=== PATIENT | male | born 1955 | race Caucasian/White ===

== ENCOUNTER → 2018-03-09 07:38 | Outpatient (CLI) | payer OTHER, SELFPAY ==
[2018-03-09 07:51] LABS: Bacteria Urine None Seen; RBC Urine None Seen (0-5/HPF); WBC Urine None Seen (0-5/HPF)
[2018-03-09 08:50] LABS: Add Manual Diff / Slide Review NO; Appearance Urine UA CLEAR; Basophils Percent Auto 0.3 % (0-2); Bilirubin Urine UA NEGATIVE (NEGATIVE); Color Urine UA YELLOW; Glucose Urine UA 2+ g/dL (Normal); Hematocrit 43.6 % (41-53); Hemoglobin 15.1 g/dL (13.5-17.5); Ketones Urine UA NEGATIVE (NEGATIVE); Leukocyte Esterase Urine UA NEGATIVE (NEGATIVE); Lymphocytes Percent Auto 23.2 % (25-40); Mean Corpuscular HGB Conc 34.8 % (30-36); Mean Corpuscular Hemoglobin 29.8 PG (26-34); Mean Corpuscular Volume 85.9 fL (80-100); Monocytes Percent Auto 7.7 % (3-14); Neutrophils Absolute Auto 3000 /uL (3000-5900); Neutrophils Percent Auto 66.8 % (50-75); Nitrite Urine UA Negative (Negative); Occult Blood Urine UA NEGATIVE (Negative); Platelet Count 198 X10^3/uL (150-400); Protein Urine UA NEGATIVE (Negative); Red Blood Cell Count 5.07 X10^6/uL (4.5-5.9); Red Cell Distribution Width 12.7 % (11.6-14.8); Specific Gravity Urine UA 1.025 (1.000-1.035); Urobilinogen Urine UA 0.2 E.U./dL (0.2); White Blood Cell Count 4.5 X10^3/uL (4.5-11.0)
[2018-03-09 09:00] LABS: Culture Indicated Urine Cult Not Indicated; Urine Comments Microscopic Normal
[2018-03-09 09:10] LABS: Alanine Aminotransferase 47 IU/L (21-72); Albumin 4.6 g/dL (3.5-5.0); Albumin Globulin Ratio 1.8 (1.0-2.8); Alkaline Phosphatase 47 U/L (38-126); Aspartate Aminotransferase 29 IU/L (17-59); BUN Creatinine Ratio 17.5 (6-22); Bilirubin Total 0.7 mg/dL (0.2-1.3); Blood Urea Nitrogen 14 mg/dL (9-20); Calcium 9.5 mg/dL (8.4-10.2); Carbon Dioxide 31 mmol/L (22-32); Chloride 101 mmol/L (98-107); Cholesterol 199 mg/dL (140-199); Estimated Glomerular Filt Rate > 60.0 mL/min (>60); Globulin 2.5 g/dL (1.7-4.1); Glucose 224 mg/dL (80-110); HDL Cholesterol 46 mg/dL (40-60); HEMOLYSIS < 15 (0-50); LDL Cholesterol Calculated 123 mg/dL (<100); Potassium 4.2 mmol/L (3.4-5.1); Sodium 144 mmol/L (137-145); Total Protein 7.1 g/dL (6.3-8.2); Triglycerides 149 mg/dL (35-150)
[2018-03-09 09:49] LABS: TSH w/ Reflex to FT4 3.39 uIU/mL (0.47-4.68)
== END ==
PROVIDERS: PCP Family Medicine; Visit Provider Nurse Practitioner Family
DX: Z00.00 Encounter for general adult medical examination without abnormal findings (principal)
CPT/HCPCS: 36415; 80053; 80061; 81001; 84443; 85025

== ENCOUNTER → 2018-03-10 13:16 | Outpatient (CLI) | payer OTHER, SELFPAY | PROVIDERS: PCP Family Medicine; Visit Provider Family Medicine | DX: E11.69 Type 2 diabetes mellitus with other specified complication (principal); E11.9 Type 2 diabetes mellitus without complications; E78.5 Hyperlipidemia, unspecified; Z12.5 Encounter for screening for malignant neoplasm of prostate | CPT/HCPCS: 83036; 84153 ==

== ENCOUNTER → 2018-04-12 11:05 | Outpatient (CLI) | payer OTHER, SELFPAY ==
--- NOTE | 2018-04-12 11:07 | DI.RAD.S_ITS ---
PROCEDURE: XR SHOULDER LT MIN 2V INDICATIONS: Ongoing left shoulder pain x6 months TECHNIQUE: 3 views of the shoulder were acquired. COMPARISON: None. FINDINGS: Bones: No fractures or dislocations. No suspicious bony lesions. Visualized ribs appear intact. Mild AC and glenohumeral joint degeneration. Soft tissues: No suspicious soft tissue calcifications. IMPRESSION: Mild left shoulder joint degeneration. Dictated by: Garcia Cedeno M.D. on 04/12/2018 at 13:12 Approved by: Garcia Cedeno M.D. on 04/12/2018 at 13:13
== END ==
PROVIDERS: PCP Family Medicine; Visit Provider Family Medicine
DX: M25.512 Pain in left shoulder (principal); M19.012 Primary osteoarthritis, left shoulder
CPT/HCPCS: 73030

== ENCOUNTER → 2018-07-09 07:34 | Outpatient (CLI) | payer OTHER, SELFPAY ==
[2018-07-09 09:52] LABS: BUN Creatinine Ratio 13.8 (6-22); Blood Urea Nitrogen 11 mg/dL (9-20); Calcium 9.5 mg/dL (8.4-10.2); Carbon Dioxide 28 mmol/L (22-32); Chloride 101 mmol/L (98-107); Estimated Glomerular Filt Rate > 60.0 mL/min (>60); Glucose 161 mg/dL (80-110); HEMOLYSIS < 15 (0-50); Potassium 4.4 mmol/L (3.4-5.1); Sodium 139 mmol/L (137-145)
[2018-07-09 10:49] LABS: Hemoglobin A1C% w Est Avg Glu 8.2 % (4.0-6.0)
== END ==
PROVIDERS: PCP Family Medicine; Visit Provider Family Medicine
DX: E11.65 Type 2 diabetes mellitus with hyperglycemia (principal)
CPT/HCPCS: 36415; 80048; 83036

== ENCOUNTER 2018-09-09 01:30 | Emergency (ER) | payer OTHER, SELFPAY ==
[2018-09-09 01:38] VITALS: BP 138/95; PULSE 86; RESP 15; TEMP 36.9; O2SAT 96; BMI 28.7
--- NOTE | 2018-09-09 02:11 | DI.RAD.S_ITS ---
PROCEDURE: XR CHEST 2V INDICATIONS: severe pain in lower left chest after cough TECHNIQUE: 2 views of the chest were acquired. COMPARISON: None. FINDINGS: Surgical changes and devices: None. Lungs and pleura: Lungs are clear. There is a 5 mm nodule in the right lower lung zone on the frontal view. No pleural effusions or pneumothorax. Mediastinum: Mediastinal contours are normal. Heart size is normal. Bones and chest wall: No suspicious bony abnormalities. Soft tissues appear unremarkable. IMPRESSION: 1. No acute cardiopulmonary disease. 2. A 5 mm nodule in the right lower lung zone. A chest CT is suggested for followup. The result was discussed with Dr. Borjas's nurse Ayah on 09/09/2018 at 12:29 hours. Dictated by: Kelton Ulloa M.D. on 09/09/2018 at 8:31 Approved by: Kelton Ulloa M.D. on 09/09/2018 at 12:33
[2018-09-09] MEDS: ACETAMINOPHEN/CODEINE SOLN 5 ML SOLUTION 10 ML PO (02:23)
--- NOTE | 2018-09-09 02:29 | ED_ITS ---
HPI - Chest Pain General Chief Complaint: Chest Pain Stated Complaint: tore or pulled left chest muscle, coughing Time Seen by Provider: 09/09/18 01:31 Source: patient and family Mode of arrival: ambulatory Limitations: no limitations History of Present Illness HPI narrative: 62-year-old male nonsmoker with recent upper respiratory symptoms presents with severe left-sided abdominal wall pain after a violent coughing fit. He has had some runny nose, headache, sore throat and dry hacking cough for the past few days. Denies nausea, vomiting or diarrhea. He denies any change in urinary or bowel habits. He denies any injury or history of the same. His pain is sharp and burning in on his left anterior abdominal wall. His discomfort is fine if he remains still and is not coughing or pushing on it. Onset (ago): hour(s) Duration: intermittent Onset: other Pain location: other (Left anterior abdominal muscle wall) Severity: severe Quality: sharp Pain radiation: none Relieving factors: rest Exacerbating factors: inspiration Context: recent illness Treatments prior to arrival chest pain: none Related Data Previous Rx's Medication Instructions Recorded pravastatin 40 mg tablet 40 mg PO HS #90 tab 03/10/18 varicella-zoster glycoE [id number] 0.5 ml IM ONCE #1 each 03/10/18 adj(PF) 50 mcg/0.5 mL IM susp, kit glipizide ER 5 mg tablet, extended 5 mg PO DAILY #90 tab 05/12/18 release 24 hr losartan 50 mg tablet 50 mg PO DAILY #90 tab 05/21/18 blood sugar diagnostic strips #100 each 07/13/18 glipizide ER 2.5 mg tablet, 7.5 mg PO DAILY #270 tab 07/20/18 extended release 24 hr ciprofloxacin 0.3 %-dexamethasone 4 drop EAR-RIGHT BID #7.5 ml 07/26/18 0.1 % ear drops,suspension benzonatate [Tessalon Perles] 100 mg PO BID-TID PRN #14 cap 09/09/18 codeine-guaifenesin 5 ml PO Q6H PRN #473 ml 09/09/18 lidocaine [Lidoderm] 1 patch TOP DAILY #15 each 09/09/18 Allergies Allergy/AdvReac Type Severity Reaction Status Date / Time atorvastatin [From LIPITOR] Allergy Intermediate body pain Verified 09/09/18 01:38 Review of Systems Constitutional Denies chills, Denies fever(s), Denies lethargy and Denies weakness Eyes Denies change in vision, Denies eye discharge, Denies irritation and Denies loss of vision ENT Ears, Nose, Mouth, and Throat: Denies change in voice, Reports nasal congestion, Reports nasal discharge, Denies neck pain and Reports sore throat Cardiovascular Denies chest pain, Denies irregular heart rhythm, Denies lightheadedness, Denies palpitations, Denies dyspnea, Denies dyspnea on exertion and Denies orthopnea Respiratory Reports cough, Denies dyspnea, Denies dyspnea on exertion and Denies wheezing Gastrointestinal Gastrointestinal: Reports abdominal pain, Denies change in bowel habits, Denies diarrhea, Denies nausea and Denies vomiting Genitourinary Denies hematuria, Denies flank pain, Denies urinary incontinence and Denies urinary urgency Musculoskeletal Denies neck pain Integumentary/Breasts Denies pruritus, Denies erythema, Denies rash and Denies wounds Neurologic Denies confusion, Denies loss of vision and Denies weakness Psychiatric Denies anxiety, Denies confusion, Denies depression, Denies homicidal ideation and Denies suicidal ideation Endocrine Denies palpitations Hematologic/Lymphatic Denies easy bruising Allergic/Immunologic Denies wheezing PFSH Medical History Essential hypertension (Chronic) Chronic back pain (Chronic) Diabetes mellitus (Chronic 2014) Foot infection (Resolved 1998) Surgical History Anesthesia (Resolved) History of foot surgery (Resolved 1998) Status post discectomy (Resolved 2015) Family History Brother Hypertension High cholesterol Father Heart disease Hypertension High cholesterol Diabetes mellitus Hx of CABG Mother Hypertension ALS (amyotrophic lateral sclerosis) Brother No problems noted. Sister MS (multiple sclerosis) Social History marital status: Smoking Status: Never smoker alcohol intake: current substance use type: does not use Family History Brother Hypertension High cholesterol Father Heart disease Hypertension High cholesterol Diabetes mellitus Hx of CABG Mother Hypertension ALS (amyotrophic lateral sclerosis) Brother No problems noted. Sister MS (multiple sclerosis) Social History marital status: Smoking Status: Never smoker alcohol intake: current substance use type: does not use Exam Narrative Exam Narrative: GENERAL: 62-year-old male appears stated age. He is obviously uncomfortable and clutching his left abdomen HEAD: Atraumatic. Normocephalic. No temporal or scalp tenderness. EYES: Pupils equal round and reactive. Extraocular motions intact. No scleral icterus. No injection or drainage. ENT: Clear bilateral nasal drainage with clear posterior pharyngeal drainage NECK: Trachea midline. No JVD or lymphadenopathy. Supple, nontender, no meningea l signs. CARDIOVASCULAR: Regular rate and rhythm without murmurs, gallops, or rubs. RESPIRATORY: Clear to auscultation. Breath sounds equal bilaterally. No wheezes, rales, or rhonchi. GASTROINTESTINAL: Left anterior abdominal muscle wall is quite tender to palpation. There is no bulge or suggestion of hernia or obvious rent. Abdomen soft, non-tender, nondistended. No hepato-splenomegaly, or palpable masses. No guarding. EXTREMITIES: No clubbing, cyanosis, or edema. No joint tenderness, effusion, or edema noted. BACK: Nontender without deformity or crepitance. No flank tenderness. NEURO: AOx3. SKIN: No rash or erythema. Initial Vital Signs Initial Vital Signs: Vital Signs Temperature 98.5 F 09/09/18 01:38 Pulse Rate 86 09/09/18 01:38 Respiratory Rate 15 09/09/18 01:38 Blood Pressure 138/95 H 09/09/18 01:38 Pulse Oximetry 96 09/09/18 01:38 Course Orders Ordered: ED Orders 09/09/18 02:11 XR chest 2V Stat 09/09/18 02:15 Influenza A and B by PCR Rapid Stat Discontinued Medications Acetaminophen/Codeine Phosphate (Tylenol Oral Divine 120-12 Mg/5 Ml) 10 ml PO NOW ONE Stop: 09/09/18 02:12 Last Admin: 09/09/18 02:23 Dose: 10 ml Vital Signs - 8 hr 09/09/18 01:38 09/09/18 02:51 Temperature 98.5 F Pulse Rate 86 59 L Respiratory Rate 15 20 Blood Pressure 138/95 H Blood Pressure [Left Wrist] 111/65 Pulse Oximetry 96 97 MDM - Chest Pain Lab Data Lab Results 09/09/18 Range/Units 02:15 Influenza A & B (PCR) Negative (Negative) Imaging Data Chest x-ray: Attestation: I personally reviewed and interpreted this imaging study as follows: My impression: No SBO, PTX, PNA MDM Narrative Medical decision making narrative: Patient with URI symptoms presents with severe tearing abdominal wall pain with a coughing spell. Patient denies any shortness of breath. He has had no fever or chills. Discharge Plan Departure Patient Disposition: Home Clinical Impression: Abdominal muscle strain Qualifiers: Encounter type: initial encounter Qualified Code(s): S39.011A - Strain of muscle, fascia and tendon of abdomen, initial encounter Upper respiratory infection Qualifiers: URI type: unspecified viral URI Qualified Code(s): J06.9 - Acute upper respiratory infection, unspecified Activity Restrictions/Additional Instructions: *You have been diagnosed with [anterior abdominal wall strain is secondary to cough from upper respiratory infection ] *What to do: *Take medications as directed *Follow up with your primary care provider in 2-3 days, call for an appointment. Let them know you were seen in the Emergency Department and that we ask that you be seen in follow up *Return to ER if you should have any new, worsening or concerning symptoms Prescriptions: New benzonatate [Tessalon Perles] 100 mg capsule 100 mg PO BID-TID PRN (Reason: cough) Qty: 14 RF: 0 codeine-guaifenesin 7.5-225 mg/5 mL liquid 5 ml PO Q6H PRN (Reason: cough) Qty: 473 RF: 0 lidocaine [Lidoderm] 5 % adhesive patch,medicated 1 patch TOP DAILY Qty: 15 RF: 0 No Action Ciprodex 0.3-0.1 % drops,suspension 4 drop EAR-RIGHT BID Qty: 7.5 RF: 2 losartan 50 mg tablet 50 mg PO DAILY Qty: 90 RF: 2 glipizide 2.5 mg tablet extended release 24hr 7.5 mg PO DAILY Qty: 270 RF: 3 pravastatin 40 mg tablet 40 mg PO HS Qty: 90 RF: 3 varicella-zoster [id number] (PF) [Shingrix (PF)] 50 mcg/0.5 mL suspension for reconstitution 0.5 ml IM ONCE Qty: 1 RF: 1 blood sugar diagnostic [Blood Glucose Test] strip .Route .MEDSUPPLY Qty: 100 RF: 11 glipizide 5 mg tablet extended release 24hr 5 mg PO DAILY Qty: 90 RF: 2 Referrals: Cheryl Borjas DO [Primary Care Provider] -
[2018-09-09 02:35] LABS: Influenza A and B by PCR Rapid Negative (Negative)
[2018-09-09 02:51] VITALS: BP 111/65; PULSE 59; RESP 20; O2SAT 97
== END 2018-09-09 02:58 | disposition home or self-care (01) ==
PROVIDERS: Emergency Provider Emergency Medicine; PCP Family Medicine
DX: S39.011A Strain of muscle, fascia and tendon of abdomen, initial encounter (principal); J06.9 Acute upper respiratory infection, unspecified
CPT/HCPCS: 71046; 87400; 99282; 99283

== ENCOUNTER → 2018-09-15 15:45 | Outpatient (CLI) | payer OTHER, SELFPAY ==
[2018-09-15 17:21] LABS: BUN Creatinine Ratio 18.8 (6-22); Blood Urea Nitrogen 15 mg/dL (9-20); Calcium 9.7 mg/dL (8.4-10.2); Carbon Dioxide 28 mmol/L (22-32); Chloride 101 mmol/L (98-107); Estimated Glomerular Filt Rate > 60.0 mL/min (>60); Glucose 245 mg/dL (80-110); HEMOLYSIS < 15 (0-50); Potassium 4.6 mmol/L (3.4-5.1); Sodium 138 mmol/L (137-145)
== END ==
PROVIDERS: PCP Family Medicine; Visit Provider Family Medicine
DX: R91.1 Solitary pulmonary nodule (principal)
CPT/HCPCS: 36415; 80048

== ENCOUNTER → 2018-09-17 07:58 | Outpatient (CLI) | payer OTHER, SELFPAY ==
--- NOTE | 2018-09-17 08:20 | DI.CT.S_ITS ---
PROCEDURE: CT CHEST WO CON INDICATIONS: NODULE OF CHEST WALL TECHNIQUE: Noncontrast 5 mm thick sections acquired from the pulmonary apices to the posterior costophrenic angles. 7 mm thick coronal and sagittal MIP reformats were then acquired. For radiation dose reduction, the following was used: automated exposure control, adjustment of mA and/or kV according to patient size. COMPARISON: [facility], CR, XR CHEST 2V, 09/09/2018, 2:16. FINDINGS: Image quality: Excellent. Lungs and pleura: Within the right lower lobe, there is a 4 mm soft tissue nodule corresponding to the plain film visible nodule, as on series 3 image 32. No additional pulmonary nodules can be seen. No acute air space opacities. No pleural effusions or pneumothorax. Central and peripheral airways are patent and normal in caliber. Mediastinum: Heart size is normal. No pericardial effusion. No mediastinal adenopathy by size criteria. There is a collection of gas seen to the right and slightly posterior on the trachea and just to the right of the esophagus, as on series 3 image 9 and on series 4 images 34, which measures up to 2.7 cm craniocaudally. Thoracic aorta and central pulmonary arteries are normal in size. Esophagus is normal in caliber. No hiatal hernia. Bones and chest wall: No suspicious bony lesions. No vertebral body compression fractures. No axillary or supraclavicular adenopathy by size criteria. Thyroid gland demonstrates no significant noncontrast abnormality. Abdomen: Visualized upper abdominal solid organs and bowel loops appear normal in the absence of contrast. IMPRESSION: There is a 4 mm right lower lobe pulmonary soft tissue nodule that corresponds to the plain film visible nodule. If this patient has a high risk for lung cancer, then please consider a dedicated followup in 1 year. If this patient is at low risk for lung cancer, then no further imaging followup would be recommended, although attention should be paid to this nodule on any future chest CTs. There is a 2.7 cm collection of gas seen within the right mediastinum. The source of this gas is uncertain, although it may be related to an esophageal diverticulum. This is believed to be a benign finding. Attention should be paid to this on any future followup studies. Dictated by: Jesse Gomez M.D. on 09/17/2018 at 8:56 Transcribed by: REINALDO on 09/17/2018 at 9:02 Approved by: Jesse Gomez M.D. on 09/17/2018 at 10:42
== END ==
PROVIDERS: PCP Family Medicine; Visit Provider Family Medicine
DX: R22.2 Localized swelling, mass and lump, trunk (principal); R91.1 Solitary pulmonary nodule
CPT/HCPCS: 71250

== ENCOUNTER → 2018-09-30 07:23 | Outpatient (CLI) | payer OTHER, SELFPAY | PROVIDERS: PCP Family Medicine; Visit Provider Family Medicine | DX: E11.9 Type 2 diabetes mellitus without complications (principal) | CPT/HCPCS: 36415; 83036 ==

== ENCOUNTER → 2018-12-28 07:31 | Outpatient (CLI) | payer OTHER, SELFPAY ==
[2018-12-28 08:33] LABS: Hemoglobin A1C% w Est Avg Glu 7.5 % (4.0-6.0)
== END ==
PROVIDERS: PCP Family Medicine; Visit Provider Family Medicine
DX: E11.9 Type 2 diabetes mellitus without complications (principal)
CPT/HCPCS: 36415; 83036

== ENCOUNTER → 2019-03-15 08:22 | Outpatient (CLI) | payer OTHER, SELFPAY ==
[2019-03-15 08:49] LABS: Add Manual Diff / Slide Review NO; Basophils Absolute Auto 0 /uL (0-100); Basophils Percent Auto 0.3 % (0-2); Eosinophils Absolute Auto 100 /uL (0-450); Eosinophils Percent Auto 1.2 % (2-4); Hematocrit 44.2 % (41-53); Hemoglobin 14.8 g/dL (13.5-17.5); Lymphocytes Absolute Auto 900 /uL (1100-4500); Lymphocytes Percent Auto 17.9 % (25-40); Mean Corpuscular HGB Conc 33.4 % (30-36); Mean Corpuscular Hemoglobin 29.1 PG (26-34); Mean Corpuscular Volume 87.1 fL (80-100); Monocytes Absolute Auto 400 /uL (0-900); Monocytes Percent Auto 7.7 % (3-14); Neutrophils Absolute Auto 3500 /uL (1500-7000); Neutrophils Percent Auto 72.9 % (50-75); Platelet Count 199 X10^3/uL (150-400); Red Blood Cell Count 5.07 X10^6/uL (4.5-5.9); Red Cell Distribution Width 13.3 % (11.6-14.8); White Blood Cell Count 4.9 X10^3/uL (4.5-11.0)
[2019-03-15 09:38] LABS: Hemoglobin A1C% w Est Avg Glu 6.2 % (4.0-6.0)
[2019-03-15 09:56] LABS: Alanine Aminotransferase 49 IU/L (21-72); Albumin 4.8 g/dL (3.5-5.0); Albumin Globulin Ratio 1.8 (1.0-2.8); Alkaline Phosphatase 39 U/L (38-126); Aspartate Aminotransferase 28 IU/L (17-59); BUN Creatinine Ratio 16.7 (6-22); Bilirubin Total 0.5 mg/dL (0.2-1.3); Blood Urea Nitrogen 15 mg/dL (9-20); Calcium 9.8 mg/dL (8.4-10.2); Carbon Dioxide 30 mmol/L (22-32); Chloride 102 mmol/L (98-107); Cholesterol 180 mg/dL (140-199); Estimated Glomerular Filt Rate > 60.0 mL/min (>60); Globulin 2.6 g/dL (1.7-4.1); Glucose 162 mg/dL (80-110); HDL Cholesterol 45 mg/dL (40-60); HEMOLYSIS < 15 (0-50); LDL Cholesterol Calculated 118 mg/dL (<100); Potassium 4.5 mmol/L (3.4-5.1); Sodium 141 mmol/L (137-145); Total Protein 7.4 g/dL (6.3-8.2); Triglycerides 86 mg/dL (35-150)
[2019-03-15 09:59] LABS: Creatinine Urine Random 130.7 mg/dL
[2019-03-15 10:03] LABS: Microalbumi Creatinin Ratio Ur 4.5 ug/mg CR (<30); Microalbumin Urine Random 0.6 mg/dL (0-1.6)
[2019-03-15 10:20] LABS: Thyroid Stimulating Hormone 2.45 uIU/mL (0.47-4.68)
== END ==
PROVIDERS: PCP Family Medicine; Visit Provider Family Medicine
DX: E11.69 Type 2 diabetes mellitus with other specified complication (principal); E78.5 Hyperlipidemia, unspecified; I10 Essential (primary) hypertension
CPT/HCPCS: 36415; 80053; 80061; 82043; 82570; 83036; 84443; 85025

== ENCOUNTER → 2019-03-21 09:26 | Outpatient (CLI) | payer OTHER, SELFPAY ==
[2019-03-21 14:22] LABS: Prostate Specific Antigen 2.38 ng/mL (0.10-4.00)
== END ==
PROVIDERS: PCP Family Medicine; Visit Provider Family Medicine
DX: Z12.5 Encounter for screening for malignant neoplasm of prostate (principal)
CPT/HCPCS: 84153

== ENCOUNTER → 2019-06-17 07:27 | Outpatient (CLI) | payer OTHER, SELFPAY ==
[2019-06-17 08:58] LABS: Hemoglobin A1C% w Est Avg Glu 6.9 % (4.0-6.0)
== END ==
PROVIDERS: PCP Family Medicine; Visit Provider Family Medicine
DX: E11.9 Type 2 diabetes mellitus without complications (principal)
CPT/HCPCS: 36415; 83036

== ENCOUNTER → 2019-06-21 10:35 | Outpatient (CLI) | payer OTHER, SELFPAY ==
[2019-06-21 11:04] LABS: Hematocrit 46.4 % (41-53); Hemoglobin 15.5 g/dL (13.5-17.5); Mean Corpuscular HGB Conc 33.4 % (30-36); Mean Corpuscular Hemoglobin 29.1 PG (26-34); Mean Corpuscular Volume 87.1 fL (80-100); Platelet Count 239 X10^3/uL (150-400); Red Blood Cell Count 5.32 X10^6/uL (4.5-5.9); Red Cell Distribution Width 12.8 % (11.6-14.8)
[2019-06-21 11:25] LABS: Alanine Aminotransferase 43 IU/L (<50); Albumin 5.1 g/dL (3.5-5.0); Alkaline Phosphatase 50 U/L (38-126); Aspartate Aminotransferase 28 IU/L (17-59); BUN Creatinine Ratio 18.2 (6-22); Bilirubin Total 0.4 mg/dL (0.2-1.3); Blood Urea Nitrogen 20 mg/dL (9-20); Calcium 10.2 mg/dL (8.4-10.2); Carbon Dioxide 29 mmol/L (22-32); Chloride 102 mmol/L (98-107); Estimated Glomerular Filt Rate > 60.0 mL/min (>60); Globulin 2.5 g/dL (1.7-4.1); Glucose 149 mg/dL (80-110); HEMOLYSIS < 15 (0-50); Potassium 4.3 mmol/L (3.4-5.1); Sodium 142 mmol/L (137-145); Total Protein 7.6 g/dL (6.3-8.2)
[2019-06-21 11:56] LABS: RBC Morphology Normal Morphology; TSH w/ Reflex to FT4 2.66 uIU/mL (0.47-4.68)
[2019-06-21 12:23] LABS: Neutrophils Absolute Manual 4080 /uL (3000-5900); Total Cells Counted 100
== END ==
PROVIDERS: PCP Family Medicine; Visit Provider Family Medicine
DX: R14.2 Eructation (principal)
CPT/HCPCS: 36415; 80053; 84443; 85025

== ENCOUNTER → 2019-06-27 14:44 | Outpatient (CLI) | payer OTHER, SELFPAY ==
--- NOTE | 2019-06-27 14:45 | DI.US.S_ITS ---
PROCEDURE: US ABDOMEN COMPLETE INDICATIONS: BELCHING, RUQ PAIN TECHNIQUE: Real-time scanning was performed of the abdominal and retroperitoneal organs, with image documentation. COMPARISON: None. FINDINGS: Liver: Liver is normal in size and homogeneous in echotexture, relatively hyperechoic consistent with fatty infiltration. Gallbladder: What appears to be a small gallbladder wall cyst is present at the fundus measuring 3.5 x 3.6 mm Biliary ducts: Intrahepatic bile ducts are non-dilated. Extrahepatic bile duct caliber measures 3.3 mm. Normal is 6-7 mm or less in diameter, or 10 mm or less post-cholecystectomy. Pancreas: Visualized portions of the pancreas are sonographically normal. Spleen: Spleen is normal in size and homogeneous in echotexture. Kidneys: Kidneys are normal in size and echotexture. Right kidney measures 12.2 cm long; left kidney measures 11.5 cm long. No hydronephrosis or nephrolithiasis. No solid masses. Aorta: Visualized aorta is normal in caliber at less than 3 cm. Iliacs: Proximal common iliac arteries are normal in caliber at less than 2.5 cm. IVC: Intrahepatic inferior vena cava is patent. Miscellaneous: No free abdominal fluid. IMPRESSION: Cyst at the gallbladder wall, at the fundus measuring only 3.6 mm in maximal dimension. Echogenic hepatic echotexture is consistent with diffuse fatty infiltration please correlate clinically for potential etiology of hepatic steatosis. Dictated by: Donta Thomas M.D. on 06/27/2019 at 17:12 Approved by: Donta Thomas M.D. on 06/27/2019 at 17:35
== END ==
PROVIDERS: PCP Family Medicine; Visit Provider Family Medicine
DX: R14.2 Eructation (principal); R10.11 Right upper quadrant pain; K82.8 Other specified diseases of gallbladder
CPT/HCPCS: 76700

== ENCOUNTER → 2019-09-10 09:21 | Outpatient (CLI) | payer OTHER, SELFPAY ==
--- NOTE | 2019-09-10 09:23 | DI.RAD.S_ITS ---
PROCEDURE: XR FOOT RT MIN 3V INDICATIONS: R foot pain after dropping object on top of it TECHNIQUE: 3 views of the foot were acquired. COMPARISON: None. FINDINGS: Bones: No fractures or dislocations. No suspicious bony lesions. Soft tissues: No tibiotalar joint effusion. Achilles tendon appears normal. IMPRESSION: No visualized acute fracture or dislocation. However, if clinical concern and/or pain persist, short interval imaging followup in 7-10 days is recommended, as occult injury cannot be definitively excluded. Dictated by: Ale Perdomo M.D. on 09/10/2019 at 9:46 Approved by: Ale Perdomo M.D. on 09/10/2019 at 9:46
== END ==
PROVIDERS: PCP Family Medicine; Referring Provider Family Medicine; Visit Provider Nurse Practitioner
DX: M79.671 Pain in right foot (principal)
CPT/HCPCS: 73630

== ENCOUNTER → 2019-09-23 07:33 | Outpatient (CLI) | payer OTHER, SELFPAY ==
[2019-09-23 08:10] LABS: Hemoglobin A1C% w Est Avg Glu 7.9 % (4.0-6.0)
== END ==
PROVIDERS: PCP Family Medicine; Referring Provider Family Medicine; Visit Provider Family Medicine
DX: E11.9 Type 2 diabetes mellitus without complications (principal)
CPT/HCPCS: 36415; 83036

== ENCOUNTER → 2020-02-01 15:57 | Outpatient (CLI) | payer OTHER, SELFPAY ==
[2020-02-01 16:57] LABS: Hemoglobin A1C% w Est Avg Glu 6.6 % (4.0-6.0)
== END ==
PROVIDERS: PCP Family Medicine; Referring Provider Family Medicine; Visit Provider Family Medicine
DX: E11.9 Type 2 diabetes mellitus without complications (principal)
CPT/HCPCS: 36415; 83036

== ENCOUNTER 2020-06-04 15:03 | Emergency (ER) | payer OTHER, SELFPAY ==
[2020-06-04 15:06] VITALS: BP 146/85; PULSE 88; RESP 16; TEMP 36.5; O2SAT 100
[2020-06-04] MEDS: TET,DIPH,PERTUSS(ACELL),VAC/PF 0.5 ML SYRINGE IM (17:40)
--- NOTE | 2020-06-04 18:10 | ED.WOUNDLAC ---
HPI - Wound/Laceration General Chief Complaint: Wound/Laceration Stated Complaint: Left Middle Finger Laceration Time Seen by Provider: 06/04/20 18:10 Source: patient Mode of arrival: Ambulatory History of Present Illness HPI narrative: 64-year-old gentleman with history of diabetes hypertension and hyperlipidemia with cutting linoleum and the blade and that cutting the tip of his left middle finger. He was having difficulty in getting the bleeding to stop. Related Data Previous Rx's Medication Instructions Recorded losartan 50 mg tablet 50 mg PO DAILY #90 tab 05/21/18 lidocaine [Lidoderm] 1 patch TOP DAILY #15 each 09/09/18 ondansetron 4 mg disintegrating 4 mg PO Q8H PRN #20 tab 06/21/19 tablet amlodipine 10 mg tablet 10 mg PO DAILY #90 tab 07/07/19 blood sugar diagnostic #100 each 11/01/19 glipizide 5 mg tablet, extended 5 mg PO BID #180 tab 01/13/20 release 24 hr pravastatin 40 mg tablet 40 mg PO DAILY #90 tab 05/15/20 sitagliptin 100 mg tablet 100 mg PO DAILY #90 tab 05/21/20 cephalexin 500 mg PO Q8H #15 cap 06/04/20 Allergies Allergy/AdvReac Type Severity Reaction Status Date / Time atorvastatin [From LIPITOR] AdvReac Intermediate body pain Verified 06/04/20 17:16 Review of Systems Review of Systems Narrative: Pertinent positive and negative findings as per HPI Remainder of review of systems is otherwise unremarkable for Constitutional: Fevers, chills, weakness ENT: No sore throat, neck pain, ear pain CV: Chest pain, palpitations, Respiratory: Cough, wheeze, dyspnea GI: Nausea, vomiting, diarrhea, Patient History Medical History Chronic back pain Diabetes mellitus (2014) Essential hypertension Foot infection (1998) Hyperlipidemia associated with type 2 diabetes mellitus (02/27/17) Surgical History Anesthesia History of foot surgery (1998) Status post discectomy (2015) Family History Brother Hypertension High cholesterol Father Heart disease Hypertension High cholesterol Diabetes mellitus Hx of CABG Mother Hypertension ALS (amyotrophic lateral sclerosis) Brother No problems noted. Sister MS (multiple sclerosis) Social History marital status: Smoking Status: Smoker, status unknown alcohol intake: current substance use type: does not use Smoking Status: Smoker, status unknown Exam Narrative Exam Narrative: General: Alert appropriate in no acute distress Respiratory: Able to speak in full sentences, no obvious respiratory distress Skin: No obvious rashes, warm and dry Neurologic: Grossly intact no obvious asymmetries or abnormalities Psych, appropriate insight and affect, cooperative Extremity: Small shallow laceration to the distal tip and pad of his left index finger. Bleeding is completely controlled. Initial Vital Signs Initial Vital Signs: Vital Signs Temperature 97.7 F 06/04/20 15:06 Pulse Rate 88 06/04/20 15:06 Respiratory Rate 16 06/04/20 15:06 Blood Pressure 146/85 H 06/04/20 15:06 Pulse Oximetry 100 06/04/20 15:06 Procedures Laceration Repair Left middle finger laceration: Site: hand Side (If applicable): left Size (cm): 1 Description: linear (Shallow) Depth: simple, single layer Pre-repair: wound explored and irrigated extensively Skin layer closed with: dermabond Course Orders Ordered: Discontinued Medications Diphtheria/Tetanus/Acell Pertussis (Tet,Diph,Pertuss(Acell),Vac/Pf 0.5 Ml Syringe) 0.5 ml IM .ONCE ONE Stop: 06/04/20 17:16 Last Admin: 06/04/20 17:40 Dose: 0.5 ml Documented by: JOHN Vital Signs Vital signs: Vital Signs - 8 hr 06/04/20 15:06 Temperature 97.7 F Pulse Rate 88 Respiratory Rate 16 Blood Pressure 146/85 H Pulse Oximetry 100 [facility] - Wound/Laceration Medical Records Attestation: I reviewed the patient's medical records. [facility] Narrative Medical decision making narrative: 64-year-old gentleman with a minor laceration to the tip of the left middle finger. Bleeding is controlled. Tdap is been administered. The cut was shallow enough that Dermabond was used rather than suturing. As he is diabetic and has had problems with infections with minor wounds previously he is given a prescription for Keflex to fill tomorrow the next day should he develop signs or symptoms of infection. Encouraged him to return to the emergency department with any additional complications. He is safe for home discharge Discharge Plan Departure Patient Disposition: Home Clinical Impression: Laceration Instructions: DI for Minor Laceration Activity Restrictions/Additional Instructions: Thank you for coming in today Your laceration has stopped bleeding and is not deep enough to require a suture at this time. I have applied some glue and if you are able to keep the finger clean and dry for 2-3 days the glue will stay in place and help you heal faster As you had issues with wound infections and healing in the past. I am going to give you a prescription for cephalexin 500 mg 3 times a day for 5 days. You do not need to start this prescription unless your finger is getting more red, swollen, draining or your having more difficulty with bending it. If you are having any issues with healing please feel free to return to the emergency department or follow-up with your primary care physician Prescriptions: New cephalexin 500 mg capsule 500 mg PO Q8H Qty: 15 RF: 0 No Action ondansetron 4 mg tablet,disintegrating 4 mg PO Q8H PRN (Reason: nausea and vomiting) Qty: 20 RF: 0 losartan 50 mg tablet 50 mg PO DAILY Qty: 90 RF: 2 amlodipine 10 mg tablet 10 mg PO DAILY Qty: 90 RF: 3 (DME) blood sugar diagnostic [Blood Glucose Test] Strip See Dose Instructions .Route .MEDSUPPLY Qty: 100 RF: 11 glipizide 5 mg tablet extended release 24hr 5 mg PO BID Qty: 180 RF: 3 pravastatin 40 mg tablet 40 mg PO DAILY Qty: 90 RF: 3 sitagliptin 100 mg tablet 100 mg PO DAILY Qty: 90 RF: 3 lidocaine [Lidoderm] 5 % adhesive patch,medicated 1 patch TOP DAILY Qty: 15 RF: 0 Referrals: Cheryl Borjas DO [Primary Care Provider] -
[2020-06-04 18:39] VITALS: BP 140/86; PULSE 74; RESP 12; O2SAT 99
== END 2020-06-04 18:39 | disposition home or self-care (01) ==
PROVIDERS: Emergency Provider Emergency Medicine; PCP Family Medicine
DX: S61.217A Laceration without foreign body of left little finger without damage to nail, initial encounter (principal); W45.8XXA Other foreign body or object entering through skin, initial encounter; E11.9 Type 2 diabetes mellitus without complications; I10 Essential (primary) hypertension; E78.5 Hyperlipidemia, unspecified; Z23 Encounter for immunization
CPT/HCPCS: 90471; 99282; 99283; 90715

== ENCOUNTER → 2020-08-31 10:06 | Outpatient (CLI) | payer OTHER, SELFPAY ==
[2020-08-31 10:23] LABS: Add Manual Diff / Slide Review NO; Basophils Absolute Auto 0 /uL (0-100); Basophils Percent Auto 0.4 % (0-2); Eosinophils Absolute Auto 100 /uL (0-450); Eosinophils Percent Auto 1.5 % (2-4); Hematocrit 45.6 % (41-53); Hemoglobin 15.6 g/dL (13.5-17.5); Lymphocytes Absolute Auto 900 /uL (1100-4500); Lymphocytes Percent Auto 18.6 % (25-40); Mean Corpuscular HGB Conc 34.1 % (30-36); Mean Corpuscular Hemoglobin 29.5 PG (26-34); Mean Corpuscular Volume 86.4 fL (80-100); Monocytes Absolute Auto 400 /uL (0-900); Monocytes Percent Auto 7.7 % (3-14); Neutrophils Absolute Auto 3700 /uL (1500-7000); Neutrophils Percent Auto 71.8 % (50-75); Platelet Count 194 X10^3/uL (150-400); Red Blood Cell Count 5.28 X10^6/uL (4.5-5.9); Red Cell Distribution Width 12.8 % (11.6-14.8); White Blood Cell Count 5.1 X10^3/uL (4.5-11.0)
[2020-08-31 10:34] LABS: Alanine Aminotransferase 35 IU/L (<50); Albumin 4.7 g/dL (3.5-5.0); Albumin Globulin Ratio 1.6 (1.0-2.8); Alkaline Phosphatase 57 U/L (38-126); Aspartate Aminotransferase 31 IU/L (17-59); Bilirubin Total 0.4 mg/dL (0.2-1.3); Blood Urea Nitrogen 17 mg/dL (9-20); Calcium 9.8 mg/dL (8.4-10.2); Carbon Dioxide 28 mmol/L (22-32); Chloride 102 mmol/L (98-107); Estimated Glomerular Filt Rate > 60.0 mL/min (>60); Globulin 2.9 g/dL (1.7-4.1); Glucose 176 mg/dL (80-110); HEMOLYSIS < 15 (0-50); Sodium 138 mmol/L (137-145); Total Protein 7.6 g/dL (6.3-8.2)
[2020-08-31 11:20] LABS: TSH w/ Reflex to FT4 1.32 uIU/mL (0.47-4.68)
== END ==
PROVIDERS: PCP Family Medicine; Referring Provider Family Medicine; Visit Provider Family Medicine
DX: R14.2 Eructation (principal); R53.83 Other fatigue
CPT/HCPCS: 36415; 80053; 84443; 85025

== ENCOUNTER → 2020-09-20 07:37 | Outpatient (CLI) | payer OTHER, SELFPAY ==
--- NOTE | 2020-09-20 07:38 | DI.NM.S_ITS ---
PROCEDURE: NM GASTRIC EMPTYING STUDY RADIOPHARMACEUTICAL: 1 mCi Tc-99m sulfur colloid in an egg sandwich. INDICATIONS: chronic belching and gas, indigestion TECHNIQUE: A Tc-99m labeled sulfur colloid labeled egg sandwich or oatmeal was served to the patient. Anterior and posterior planar images of the abdomen were obtained at 0 minutes and 30 minutes, then at hourly intervals up to 4 hours. The patient was upright and ambulating during the interval. COMPARISON: None. FINDINGS: The stomach has normal size, morphology, and position. There is normal emptying of solid gastric contents from the stomach by visual inspection. No gastroesophageal reflux is visualized. The percentage of tracer retained at specific time points are as follows: Time point Percent gastric retention Normal range 30 minutes 68% 70% or more 1 hour 36% 30% to 90% 2 hours 6 60% or less 3 hours - 30% or less 4 hours - 10% or less IMPRESSION: Probably normal or minimally more rapid gastric emptying time. Dictated by: Kelton Ulloa M.D. on 09/20/2020 at 11:04 Approved by: Kelton Ulloa M.D. on 09/20/2020 at 11:05
== END ==
PROVIDERS: PCP Family Medicine; Referring Provider Family Medicine; Visit Provider Family Medicine
DX: R14.2 Eructation (principal); K30 Functional dyspepsia; E11.9 Type 2 diabetes mellitus without complications
CPT/HCPCS: 78264; A9541

== ENCOUNTER → 2020-09-25 12:11 | Outpatient (CLI) | payer OTHER, SELFPAY ==
[2020-09-26 17:39] LABS: Deamidated Gliadin Ab IgA 3 units (0-19); Deamidated Gliadin Ab IgG 2 units (0-19); Immunoglobulin A,Qn 198 mg/dL (61-437); t-Transglutaminase IgA <2 U/mL (0-3)
[2020-09-28 15:51] LABS: Almond IgE <0.10 kU/L (Class 0); Cashew Nut IgE <0.10 kU/L (Class 0); Codfish Allergy IgE < 0.10 kU/L (Class 0); Egg White IgE <0.10 kU/L (Class 0); Hazelnut IgE <0.10 kU/L (Class 0); Milk IgE <0.10 kU/L (Class 0); Peanut IgE <0.10 kU/L (Class 0); Salmon Allergy IgE < 0.10 kU/L (Class 0); Scallop Allergy IgE < 0.10 kU/L (Class 0); Sesame seed Allergy IgE < 0.10 kU/L (Class 0); Shrimp IgE <0.10 kU/L (Class 0); Soybean IgE <0.10 kU/L (Class 0); Tuna Allergy IgE < 0.10 kU/L (Class 0); Walnut IgE <0.10 kU/L (Class 0); Wheat Allergy IgE < 0.10 kU/L (Class 0)
== END ==
PROVIDERS: PCP Family Medicine; Referring Provider Family Medicine; Visit Provider Family Medicine
DX: R14.0 Abdominal distension (gaseous) (principal); R14.2 Eructation
CPT/HCPCS: 36415; 82784; 83516; 86003

== ENCOUNTER → 2020-12-21 07:45 | Outpatient (CLI) | payer OTHER, SELFPAY | PROVIDERS: PCP Family Medicine; Referring Provider Student in an Organized Health Care Education/Training Program; Visit Provider Student in an Organized Health Care Education/Training Program | DX: D38.0 Neoplasm of uncertain behavior of larynx (principal) | CPT/HCPCS: 36415 ==

== ENCOUNTER → 2021-09-27 07:02 | Outpatient (CLI) | payer OTHER, SELFPAY ==
[2021-09-27 08:10] LABS: Alanine Aminotransferase 33 IU/L (<50); Cholesterol 162 mg/dL (140-199); Estimated Glomerular Filt Rate > 60 mL/min (>60); HDL Cholesterol 50 mg/dL (40-60); LDL Cholesterol Calculated 82 mg/dL (<100); Triglycerides 152 mg/dL (35-150)
[2021-09-27 08:21] LABS: Creatinine Urine Random 72.4 mg/dL
[2021-09-27 08:26] LABS: Microalbumin Urine Random < 0.6 mg/dL (0-1.6)
[2021-09-27 08:29] LABS: Vitamin D 25 Hydroxy (D3) 45.1 ng/mL (30.0-100.0)
[2021-09-27 08:42] LABS: TSH w/ Reflex to FT4 1.38 uIU/mL (0.47-4.68)
== END ==
PROVIDERS: PCP Family Medicine; Referring Provider Internal Medicine Endocrinology, Diabetes & Metabolism; Visit Provider Internal Medicine Endocrinology, Diabetes & Metabolism
DX: E11.69 Type 2 diabetes mellitus with other specified complication (principal)
CPT/HCPCS: 36415; 80061; 82043; 82306; 82565; 82570; 84443; 84460

== ENCOUNTER 2022-02-04 09:23 | Observation (INO) | payer MEDICARE, OTHER, SELFPAY ==
[2022-02-04] VITALS (17 sets, daily range): BP systolic 104–148; BP diastolic 62–92; PULSE 64–86; RESP 10–21; TEMP 35.9–37.7; O2SAT 94–99; BMI 26.3
--- NOTE | 2022-02-04 | DI.ECHO.S_ITS ---
[facility] +---------+ : : [address] : [place] [address] : : : : [id number] : : : : Phone: [phone]---------+ Echocardiogram Report + + :Name: KENDAL DAVID Study Date: 02/04/2022 Height: 72 in : :[facility] ReadingLocation: Weight: 194 lb : : Gender: Male BSA: 2.1 m2 : :: 1955 Age: 66 yrs BP: 146/83 mmHg: :Reason For Study: DYSPNEA, CARDIAC RISK FACTORS : :Ordering Physician: JONATHAN, : :MARY Vsáquez D.O Performed By: Ayah Quiñones : :Referring: MARY CASTILLO D.O : + + Interpretation Summary 1) Normal left ventricular thickness, size, wall motion, and systolic function (EF 60-65%). 2) Normal right ventricular size and function. 3) No significant valvular abnormalities. 4) No prior Echo available for comparison. Procedure: A two-dimensional transthoracic echocardiogram with color flow and Doppler was performed. The study quality was technically adequate. There is no prior echocardiogram noted for this patient. The patient was in sinus rhythm with heart rates between 67-85 bpm during the exam. Left Ventricle: The left ventricle is normal in size and wall thickness. The ejection fraction is estimated to be 60-65%. Left ventricular systolic function appears normal without focal wall motion abnormalities. Diastolic parameters suggest a relaxation abnormality of the left ventricle, consistent with probable normal filling pressures. Right Ventricle: The right ventricle is normal in size and function. Atria: Both atria are normal in size. There is no Doppler evidence for an interatrial shunt. Mitral Valve: The mitral valve is normal in structure and function. There is trace mitral regurgitation. Aortic Valve: The aortic valve is trileaflet. The aortic valve opens well. There is no aortic valve stenosis. No aortic regurgitation is present. Tricuspid Valve: The tricuspid valve is normal in structure and function. There is trace tricuspid regurgitation. Pulmonary artery pressures cannot be estimated because of the lack of a measurable TR jet velocity. Pulmonic Valve: The pulmonic valve leaflets are thin and pliable; valve motion is normal. There is trace pulmonic regurgitation. Great Vessels: The aortic root is normal size. The dimensions of the ascending aorta are normal. The IVC is of normal diameter and collapses greater than 50% with a sniff. This suggests a low right atrial pressure of 3 mm Hg. Pericardium/ Pleura There is no pericardial effusion. There is no pleural effusion. MMode/2D Measurements & Calculations LVIDd: 4.9 cm LVOT diam: 2.4 cm LVIDs: 2.8 cm Ao root diam: 3.8 cm FS: 42.1 % asc Aorta Diam: 3.8 cm IVSd: 0.91 cm Ao Arch Diam (Prox Trans): 2.4 cm LVPWd: 1.0 cm LV teixeira. diameter/BSA (cm/m^2): 2.3 LV sys. diameter/BSA (cm/m^2): 1.3 LA A2 area: 17.8 cm2 RA long axis: 5.6 cm LA A4 area: 17.9 cm2 RA area: 15.6 cm2 LA length (vol): 5.5 cm RA vol: 37.2 ml LA vol: 49.1 ml RA : 17.7 ml/m2 LA vol index: 23.3 ml/m2 IVC diam: 1.5 cm RVD1 (basal): 3.5 cm RVD2 (mid): 3.4 cm TAPSE: 2.3 cm Doppler Measurements & Calculations Ao V2 max: 109.1 cm/sec LVOT Max Roger: 88.5 cm/sec Ao V2 mean: 77.9 cm/sec LV V1 max P.1 mmHg Ao max P.8 mmHg LV V1 VTI: 18.7 cm Ao mean P.7 mmHg COURTNEY(I,D): 4.1 cm2 Ao V2 VTI: 20.5 cm COURTNEY(V,D): 3.7 cm2 sev ratio: 0.91 COURTNEY indexed to BSA (cm^2/m^2): 2.0 MV E max roger: 55.4 cm/sec PA V2 max: 92.3 cm/sec MV A max roger: 53.6 cm/sec PA V2 mean: 65.2 cm/sec MV E/A: 1.0 PA mean P.9 mmHg Med Peak E' Roger: 5.8 cm/sec PA pr(Accel): 22.5 mmHg E/E' med: 9.5 Lat Peak E' Roger: 7.4 cm/sec E/E' lat: 7.5 E/e' average: 8.5 MV dec time: 0.18 sec SV(LVOT): 84.3 ml Reading Physician:05:21 PM
--- NOTE | 2022-02-04 09:41 | DI.RAD.S_ITS ---
PROCEDURE: XR CHEST 2V INDICATIONS: shortness of breath TECHNIQUE: 2 views of the chest were acquired. COMPARISON: [facility], CT, CT ABDOMEN ADRENAL PROTOCOL, 07/09/2021, 10:56. [facility], CR, XR CHEST 2V, 09/09/2018, 2:16. FINDINGS: Surgical changes and devices: None. Lungs and pleura: Lungs appear clear. Right lower lobe pulmonary nodule measuring 0.2 cm is unchanged. No pleural effusions or pneumothorax. Mediastinum: Mediastinal contours are unchanged. Heart size is within normal limits. Bones and chest wall: No suspicious bony abnormalities. Soft tissues appear unremarkable. IMPRESSION: No acute cardiopulmonary abnormality. Dictated by: Lobito Argueta M.D. on 02/04/2022 at 10:14 Approved by: Lobito Argueta M.D. on 02/04/2022 at 10:17
[2022-02-04 10:04] LABS: Add Manual Diff / Slide Review NO; Basophils Absolute Auto 0 /uL (0-100); Basophils Percent Auto 0.4 % (0-2); Eosinophils Absolute Auto 100 /uL (0-450); Eosinophils Percent Auto 1.2 % (2-4); Hematocrit 47.3 % (41-53); Hemoglobin 16.1 g/dL (13.5-17.5); Lymphocytes Absolute Auto 1000 /uL (1100-4500); Lymphocytes Percent Auto 18.4 % (25-40); Mean Corpuscular HGB Conc 34.1 % (30-36); Mean Corpuscular Hemoglobin 29.5 PG (26-34); Mean Corpuscular Volume 86.6 fL (80-100); Monocytes Absolute Auto 400 /uL (0-900); Monocytes Percent Auto 8.2 % (3-14); Neutrophils Absolute Auto 3900 /uL (1500-7000); Neutrophils Percent Auto 71.8 % (50-75); Platelet Count 203 X10^3/uL (150-400); Red Blood Cell Count 5.47 X10^6/uL (4.5-5.9); Red Cell Distribution Width 13.4 % (11.6-14.8); White Blood Cell Count 5.4 X10^3/uL (4.5-11.0)
[2022-02-04 10:12] LABS: Alanine Aminotransferase 49 IU/L (<50); Albumin 4.9 g/dL (3.5-5.0); Albumin Globulin Ratio 1.5 (1.0-2.8); Alkaline Phosphatase 50 U/L (38-126); Aspartate Aminotransferase 36 IU/L (17-59); BUN Creatinine Ratio 18.5 (6-22); Bilirubin Total 0.7 mg/dL (0.2-1.3); Blood Urea Nitrogen 15 mg/dL (9-20); Calcium 9.5 mg/dL (8.4-10.2); Carbon Dioxide 30 mmol/L (22-32); Chloride 101 mmol/L (98-107); Estimated Glomerular Filt Rate > 60 mL/min (>60); Globulin 3.2 g/dL (1.7-4.1); Glucose 118 mg/dL (80-110); HEMOLYSIS < 15 (0-50); Potassium 3.9 mmol/L (3.4-5.1); Sodium 140 mmol/L (137-145); Total Protein 8.1 g/dL (6.3-8.2)
[2022-02-04 10:13] LABS: Creatine Kinase 126 U/L (55-170)
[2022-02-04 10:16] LABS: COVID19 -Nasal RAPID Negative (Negative)
[2022-02-04 10:24] LABS: NT-proBNP (BNP-Adult 18+) 20 pg/mL (<125); Troponin I < 0.012 ng/mL (0.01-0.034)
[2022-02-04 10:40] LABS: CKMB % Relative Index 1.4 % (1.5-5.0); Creatine Kinase MB 1.78 ng/mL (<2.37)
[2022-02-04 12:04] LABS: Lipase 160 U/L (23-300)
[2022-02-04 12:05] LABS: D Dimer < 215 ng/ml (<500)
--- NOTE | 2022-02-04 12:17 | ED_ITS ---
HPI - Weakness General Chief complaint: Weakness Stated complaint: nausea,sob,unsteady,fainting spells Time Seen by Provider: 02/04/22 09:44 Source: patient Mode of arrival: Ambulatory Limitations: no limitations History of Present Illness HPI Narrative: This is a 66-year-old male with history of hypertension, dyslipidemia and diabetes type 2 who states that he has had intermittent but increasing fatigue, nausea, exertional dyspnea and lightheadedness. Patient denies any syncope but states he is had 2 or 3 episodes where he felt like he might pass out. He denies headaches, no fevers or chills. No cough, cold or congestion. Denies chest pain or pressure but does get short of breath particularly with exertion but sometimes without. Patient states he gets nauseated with these episodes he has not had any vomiting. He denies abdominal back or flank pain. No black or bloody stools. He occasionally has diarrhea intermittently with constipation. No urinary symptoms. No swelling in his extremities he has had limited bruising on his left lower abdomen. States he does not feel like he is any weakness in his extremities, numbness tingling or difficulty with speech. Patient states that he had a cholecystectomy as they thought that might have been the cause of his symptoms. It has been increasing in frequency and length of time. He finds that when he works even if he does not exert himself particularly hard he is wiped out for several days. Patient notes he has had prior back surgery. Used to be on a daily aspirin but quit. No tobacco, alcohol or recreational drugs. He does use edibles. Has had EGD and colonoscopy in the last year. He notes family dad had a CABG at age 40, maternal grandfather had cardiac issues and a maternal uncle in his 40s or 50s of cardiac issues. He has a brother with significant dyslipidemia, sister with MS and another sibling that he states is on healthy but does not know medical issues. Patient sees Dr. Borjas, he was seeing endocrinology but his retort feeder ground bone quit. He is trying to get referred to [facility]. Has had a stress test remotely states that there was a questionable change but they re-did the stress test and it was okay this was in the 90s. He has not had any stress testing or cardiac catheterizations. He is a retired [employer] worker. He is accompanied by his Related Data Home Medications Medication Instructions Recorded Confirmed dulaglutide 0.75 mg/0.5 mL 0.75 mg SUBCUT QWEEK 08/31/20 02/04/22 subcutaneous pen injector (Trulicity) flash glucose scanning reader #1 ea 08/31/20 07/09/21 (FreeStyle Aida 14 Day Libby) ResMed AirSense 10 auto 01/07/22 amlodipine 10 mg tablet 10 mg PO DAILY 02/04/22 02/04/22 empagliflozin 25 mg tablet 25 mg PO DAILY 02/04/22 02/04/22 (Jardiance) Previous Rx's Medication Instructions Recorded losartan 50 mg tablet 50 mg PO DAILY #90 tabs 05/21/18 pravastatin 40 mg tablet 40 mg PO DAILY #90 tabs 04/23/21 Allergies Allergy/AdvReac Type Severity Reaction Status Date / Time atorvastatin [From LIPITOR] AdvReac Intermediate body pain Verified 02/04/22 08:34 Review of Systems Review of Systems ROS Unobtainable: All systems reviewed & are unremarkable except as noted in HPI and below Patient History Medical History Chronic back pain Diabetes mellitus (2014) Essential hypertension Excessive daytime sleepiness (~2016) Foot infection (1998) Hyperlipidemia associated with type 2 diabetes mellitus (02/27/17) Insomnia due to medical condition (~2015) Obstructive sleep apnea, adult (~11/26/20) Snoring (~2015) Surgical History Anesthesia History of foot surgery (1998) Status post discectomy (2015) Family History Brother Hypertension High cholesterol Father Heart disease Hypertension High cholesterol Diabetes mellitus Hx of CABG Mother Hypertension ALS (amyotrophic lateral sclerosis) Brother No problems noted. Sister MS (multiple sclerosis) Family/Other Arrhythmia Congestive heart failure Social History marital status: details: lamar Pearl, lives in [place] household members: spouse lives independently: Yes caregiver/support person: No housing: house Smoking Status: Former smoker alcohol intake: never substance use type: does not use Smoking Status: Former smoker Exam Narrative Exam Narrative: GENERAL: Alert and oriented x three, mild distress. HEENT: Head normocephalic, atraumatic, EOMI, pupils reactive, face symmetric, moist mucous membranes NECK: Supple, full range of motion CARDIOVASCULAR: Regular rate and rhythm without murmurs, rubs or gallops. No JVD. No swelling bilateral lower extremities. RESPIRATORY: Breath sounds equal bilaterally, no wheezes rales or rhonchi. ABDOMEN: Soft, nontender. Normoactive bowel sounds all 4 quadrants. No guarding or rebound, rigidity, no mass : No CVA tenderness EXTREMITIES: Normal range of motion, no clubbing or edema. Neurovascularly intact NEUROLOGICAL: Cranial nerves II through XII grossly intact. Moving all e xtremities SKIN: Warm, dry, no petechiae, no rashes or lesions. Initial Vital Signs Initial Vital Signs: Vital Signs Pulse Rate 84 02/04/22 09:42 Pulse Oximetry 98 02/04/22 09:42 Course Orders Ordered: ED Orders 02/04/22 12:07 Trop I [Troponin I] Stat 02/04/22 12:35 EKG-12 Lead Routine Acetaminophen (Acetaminophen 325 Mg Tablet) 650 mg PO Q6HR PRN PRN Reason: Fever/Mild Pain (1-3) Amlodipine Besylate (Amlodipine 5 Mg Tablet) 10 mg PO DAILY [facility] Aspirin (Aspirin Ec 81 Mg Tablet) 81 mg PO DAILY [facility] Dextrose (Dextrose 50 % In Water 25 Gm/50 Ml Syringe) 25 gm IV PRN PRN PRN Reason: Hypoglycemia Enoxaparin Sodium (Enoxaparin 40 Mg/0.4 Ml Syringe) 40 mg SUBCUT DAILY [facility] Last Admin: 02/04/22 14:45 Dose: Not Given Documented By: LDV Insulin Human Lispro (Insulin Lispro 100 Unit/Ml 3ml Vial) 0 unit SUBCUT ACHS [facility]; Protocol Last Admin: 02/04/22 20:02 Dose: Not Given Documented By: Admin: 02/04/22 17:40 Dose: Not Given Documented By: LDV Losartan Potassium (Losartan 50 Mg Tablet) 50 mg PO DAILY [facility] Ondansetron HCl (Ondansetron 4 Mg Odt) 4 mg PO Q8H PRN PRN Reason: nausea and vomiting Pantoprazole Sodium (Pantoprazole Dr 40 Mg Tablet) 40 mg PO BID [facility] Last Admin: 02/04/22 20:07 Dose: 40 mg Documented By: SH Pravastatin Sodium (Pravastatin 20 Mg Tablet) 40 mg PO BEDTIME JAKE Last Admin: 02/04/22 20:07 Dose: 40 mg Documented By: SH Discontinued Medications Aspirin (Aspirin 81 Mg Chew Tab) 324 mg PO NOW ONE Stop: 02/04/22 12:50 Last Admin: 02/04/22 12:59 Dose: 324 mg Documented By: BS Hydromorphone HCl (Hydromorphone 1 Mg Inj) 1 mg IV Q3H PRN PRN Reason: Pain, Moderate (4-6) Consultations Consultation #1: Dr. Briones, hospitalist accepts for cardiac observation and stress testing. Discussed patient does have risk factors, has strong family history, concerned for potential cardiac source of his symptomatology. Patient's workup so far has been negative. Time: 13:28 Vital Signs Vital signs: Vital Signs - 8 hr 02/04/22 12:30 02/04/22 12:30 02/04/22 13:01 Pulse Rate 85 79 Respiratory Rate 12 Blood Pressure 130/73 Pulse Oximetry 95 02/04/22 13:02 02/04/22 13:02 Pulse Rate 81 Respiratory Rate 10 L Blood Pressure 136/76 Pulse Oximetry 98 MDM - Weakness Lab Data Result diagrams: 02/04/22 09:50 02/04/22 09:50 Labs: Lab Results 02/04/22 02/04/22 02/04/22 Range/Units 09:50 09:50 09:50 WBC 5.4 (4.5-11.0) X10^3/uL RBC 5.47 (4.5-5.9) X10^6/uL Hgb 16.1 (13.5-17.5) g/dL Hct 47.3 (41-53) % MCV 86.6 (80-100) fL MCH 29.5 (26-34) PG MCHC 34.1 (30-36) % RDW 13.4 (11.6-14.8) % Plt Count 203 (150-400) X10^3/uL Neut % (Auto) 71.8 (50-75) % Lymph % (Auto) 18.4 L (25-40) % [place] % (Auto) 8.2 (3-14) % Eos % (Auto) 1.2 L (2-4) % Baso % (Auto) 0.4 (0-2) % Neut # (Auto) 3900 (3971-5766) /uL Lymph # (Auto) 1000 L (7620-9850) /uL [place] # (Auto) 400 (0-900) /uL Eos # (Auto) 100 (0-450) /uL Baso # (Auto) 0 (0-100) /uL D-Dimer (<500) ng/ml Sodium 140 (137-145) mmol/L Potassium 3.9 (3.4-5.1) mmol/L Chloride 101 (98-107) mmol/L Carbon Dioxide 30 (22-32) mmol/L BUN 15 (9-20) mg/dL Creatinine 0.81 (0.66-1.25) mg/dL Estimated GFR > 60 (>60) mL/min BUN/Creatinine Ratio 18.5 (6-22) Glucose 118 H (80-110) mg/dL Hemoglobin A1c (4.0-6.0) % Lactate 1.0 (0.7-2.1) mmol/L Calcium 9.5 (8.4-10.2) mg/dL Total Bilirubin 0.7 (0.2-1.3) mg/dL AST 36 (17-59) IU/L ALT 49 (<50) IU/L Alkaline Phosphatase 50 (38-126) U/L Total Creatine Kinase (55-170) U/L CK-MB (CK-2) (<2.37) ng/mL CK-MB (CK-2) Rel Index (1.5-5.0) % Troponin I (0.01-0.034) ng/mL NT-Pro-B Natriuret Pep (<125) pg/mL Total Protein 8.1 (6.3-8.2) g/dL Albumin 4.9 (3.5-5.0) g/dL Globulin 3.2 (1.7-4.1) g/dL Albumin/Globulin Ratio 1.5 (1.0-2.8) Lipase (23-300) U/L SARS-CoV-2 (PCR) (Negative) 02/04/22 02/04/22 02/04/22 Range/Units 09:50 09:50 09:50 WBC (4.5-11.0) X10^3/uL RBC (4.5-5.9) X10^6/uL Hgb (13.5-17.5) g/dL Hct (41-53) % MCV (80-100) fL MCH (26-34) PG MCHC (30-36) % RDW (11.6-14.8) % Plt Count (150-400) X10^3/uL Neut % (Auto) (50-75) % Lymph % (Auto) (25-40) % [place] % (Auto) (3-14) % Eos % (Auto) (2-4) % Baso % (Auto) (0-2) % Neut # (Auto) (8300-2951) /uL Lymph # (Auto) (5141-9458) /uL [place] # (Auto) (0-900) /uL Eos # (Auto) (0-450) /uL Baso # (Auto) (0-100) /uL D-Dimer < 215 (<500) ng/ml Sodium (137-145) mmol/L Potassium (3.4-5.1) mmol/L Chloride (98-107) mmol/L Carbon Dioxide (22-32) mmol/L BUN (9-20) mg/dL Creatinine (0.66-1.25) mg/dL Estimated GFR (>60) mL/min BUN/Creatinine Ratio (6-22) Glucose (80-110) mg/dL Hemoglobin A1c (4.0-6.0) % Lactate (0.7-2.1) mmol/L Calcium (8.4-10.2) mg/dL Total Bilirubin (0.2-1.3) mg/dL AST (17-59) IU/L ALT (<50) IU/L Alkaline Phosphatase (38-126) U/L Total Creatine Kinase 126 (55-170) U/L CK-MB (CK-2) 1.78 (<2.37) ng/mL CK-MB (CK-2) Rel Index 1.4 L (1.5-5.0) % Troponin I < 0.012 (0.01-0.034) ng/mL NT-Pro-B Natriuret Pep 20 (<125) pg/mL Total Protein (6.3-8.2) g/dL Albumin (3.5-5.0) g/dL Globulin (1.7-4.1) g/dL Albumin/Globulin Ratio (1.0-2.8) Lipase (23-300) U/L SARS-CoV-2 (PCR) Negative (Negative) 02/04/22 02/04/22 02/04/22 Range/Units 09:50 09:50 12:07 WBC (4.5-11.0) X10^3/uL RBC (4.5-5.9) X10^6/uL Hgb (13.5-17.5) g/dL Hct (41-53) % MCV (80-100) fL MCH (26-34) PG MCHC (30-36) % RDW (11.6-14.8) % Plt Count (150-400) X10^3/uL Neut % (Auto) (50-75) % Lymph % (Auto) (25-40) % [place] % (Auto) (3-14) % Eos % (Auto) (2-4) % Baso % (Auto) (0-2) % Neut # (Auto) (6207-7627) /uL Lymph # (Auto) (4175-8861) /uL [place] # (Auto) (0-900) /uL Eos # (Auto) (0-450) /uL Baso # (Auto) (0-100) /uL D-Dimer (<500) ng/ml Sodium (137-145) mmol/L Potassium (3.4-5.1) mmol/L Chloride (98-107) mmol/L Carbon Dioxide (22-32) mmol/L BUN (9-20) mg/dL Creatinine (0.66-1.25) mg/dL Estimated GFR (>60) mL/min BUN/Creatinine Ratio (6-22) Glucose (80-110) mg/dL Hemoglobin A1c 6.5 H (4.0-6.0) % Lactate (0.7-2.1) mmol/L Calcium (8.4-10.2) mg/dL Total Bilirubin (0.2-1.3) mg/dL AST (17-59) IU/L ALT (<50) IU/L Alkaline Phosphatase (38-126) U/L Total Creatine Kinase (55-170) U/L CK-MB (CK-2) (<2.37) ng/mL CK-MB (CK-2) Rel Index (1.5-5.0) % Troponin I < 0.012 (0.01-0.034) ng/mL NT-Pro-B Natriuret Pep (<125) pg/mL Total Protein (6.3-8.2) g/dL Albumin (3.5-5.0) g/dL Globulin (1.7-4.1) g/dL Albumin/Globulin Ratio (1.0-2.8) Lipase 160 (23-300) U/L SARS-CoV-2 (PCR) (Negative) Imaging Data Chest x-ray: Radiologist Impression: [address] [address] XRay Report Signed Patient: Kashif Ryan MR#: [id number] : 1955 Acct:[id number] Age/Sex: 66 / M Date of Service: 02/04/22 Loc: ED Accession Number: [id number] ?? Procedure: XR chest 2V Ordering Provider: Amarilys Bo D.O. PROCEDURE:? XR CHEST 2V ? INDICATIONS:? shortness of breath ? TECHNIQUE:? 2 views of the chest were acquired.? ? COMPARISON:? [facility], CT, CT ABDOMEN ADRENAL PROTOCOL, 07/09/2021, 10:56.? [facility], CR, XR CHEST 2V, 09/09/2018, 2:16. ? FINDINGS:? ? Surgical changes and devices:? None.? ? Lungs and pleura:? Lungs appear clear.? Right lower lobe pulmonary nodule measuring 0.2 cm is unchanged.? No pleural effusions or pneumothorax.? ? Mediastinum:? Mediastinal contours are unchanged.? Heart size is within normal limits.? ? Bones and chest wall:? No suspicious bony abnormalities.? Soft tissues appear unremarkable.? ? IMPRESSION:? No acute cardiopulmonary abnormality. ? ? ? Dictated by: Lobito Argueta M.D. on 02/04/2022 at 10:14 ? ? Approved by: Lobito Argueta M.D. on 02/04/2022 at 10:17 ECG Data Attestation: I personally reviewed and interpreted this ECG as follows: Interpretation: Sinus rhythm rate 81 MA 188 QRS 86 QTC 446. Patient has Q-wave in lead 3, no ST elevation nonspecific change. EKG 2. Shows rate of 91 MA 190 QRS 84 QTC of 460. Patient has Q-wave with inverted T-wave in 3 not appreciated in other leads but flattened. No elevation. MDM Narrative Medical decision making narrative: This is a 66-year-old male with increasing exertional dyspnea, lightheadedness but without syncope, nausea but no chest pain intermittently over the last several years but increasing in frequency intensity and particularly the last 3- 4 days without any improvement. He has some family risk factors his dad had a CABG in his 40s, patient has known hypertension diabetes type 2 and dy slipidemia. EKGs shows a Q-wave and inverted T-wave in lead 3 but no dynamic changes or ST elevation. Troponin is negative x2, chest x-ray, CBC CMP lipase and D-dimer are all negative with no other clear cause of patient's symptoms. Based on this recommend patient have stress testing he has not had any recently and discussed observation with the hospitalist who accepts for observation. Discharge Plan Departure Patient Disposition: Admitted as Observation Clinical Impression: DOBBINS (dyspnea on exertion) Admit Date/Time: 02/04/22 13:27 Admit Provider: Adama Briones
[2022-02-04 12:36] LABS: Troponin I < 0.012 ng/mL (0.01-0.034)
[2022-02-04] MEDS: ASPIRIN 81 MG CHEW TAB 324 MG PO (12:59)
[2022-02-04 14:05] LABS: Hemoglobin A1C% w Est Avg Glu 6.5 % (4.0-6.0)
--- NOTE | 2022-02-04 15:12 | P.HP_ITS ---
History of Present Illness History of Present Illness Date Patient Seen: 02/04/22 Time Patient Seen: 18:23 Chief complaint: nausea,sob,unsteady,fainting spells Narrative: Kashif Ryan is a 66yo male with PMH of HTN, HLD, DM2, ANGEL, and strong family history of heart disease who presents with dyspnea, fatigue, nausea and presyncope. Patient states for about 6 months he has had ongoing severe fatigue with occasional nausea and sensation like he is going to pass out. Prior to this he had a workup for acute cholecystitis due to chronic nausea and belching and was found to have acalculous cholecystitis so his gallbladder was removed which improved the symptoms. However a couple of months later the nausea returned and he developed severe fatigue with occasional dyspnea. Denies any chest pain. Has never had an echo of his heart, but had stress tests in the past which were normal. His father had a triple bypass at age 47 and another bypass at age 60. His mother from ALS. Patient sleep apnea and reports good compliance with his CPAP and outpatient appointment with sleep clinic just a month ago. He reports never having his testosterone checked and not having a morning erection for quite some time. Has a history of bilateral adrenal nodules followed by gen surg and had a normal dexamethasone suppression test in 2020. Denies lack of sleep. No headache, vision changes, rashes, joint pains, abd pain, urinary symptoms or LE swelling. Patient History Medical History Chronic back pain Diabetes mellitus (2014) Essential hypertension Excessive daytime sleepiness (~2015) Foot infection (1998) Hyperlipidemia associated with type 2 diabetes mellitus (02/27/17) Insomnia due to medical condition (~2016) Obstructive sleep apnea, adult (~11/26/20) Snoring (~2016) Surgical History Anesthesia History of foot surgery (1998) Status post discectomy (2015) Family & Social History Family History Brother Hypertension High cholesterol Father Heart disease Hypertension High cholesterol Diabetes mellitus Hx of CABG Mother Hypertension ALS (amyotrophic lateral sclerosis) Brother No problems noted. Sister MS (multiple sclerosis) Family/Other Arrhythmia Congestive heart failure Social History: household members spouse lives independently Yes caregiver/support person No Safety & Behavioral: Feels Safe in Current Yes Environment Been Physically Hurt or No Threatened By a Person Tobacco & Substance use: Smoking Status Former smoker alcohol intake never Meds Home Medications and Allergies Home Medications Medication Instructions Recorded Confirmed Type losartan 50 mg tablet 50 mg PO DAILY #90 tabs 05/21/18 02/04/22 Rx dulaglutide 0.75 mg/0.5 mL 0.75 mg SUBCUT QWEEK 08/31/20 02/04/22 History subcutaneous pen injector (Trulicity) flash glucose scanning reader #1 ea 08/31/20 07/09/21 History ([employer] Aida 14 Day [place]) pravastatin 40 mg tablet 40 mg PO DAILY #90 tabs 04/23/21 02/04/22 Rx ResMed AirSense 10 auto 01/07/22 History amlodipine 10 mg tablet 10 mg PO DAILY 02/04/22 02/04/22 History empagliflozin 25 mg tablet 25 mg PO DAILY 02/04/22 02/04/22 History (Jardiance) Allergies Allergy/AdvReac Type Severity Reaction Status Date / Time atorvastatin [From LIPITOR] AdvReac Intermediate body pain Verified 02/04/22 08:34 Review of Systems Review of Systems Narrative: All other systems reviewed with the patient and are negative unless otherwise stated. Exam Vital Signs (past 8 hours): - 02/04/22 09:54 02/04/22 09:42 02/04/22 09:43 Temperature 97.8 F Pulse Rate 77 84 Respiratory Rate 16 Blood Pressure 148/78 H 148/92 H Pulse Oximetry 97 98 Oxygen Delivery Method Room Air 02/04/22 09:43 02/04/22 10:30 02/04/22 11:00 Temperature Pulse Rate 81 64 74 Respiratory Rate 11 L 11 L Blood Pressure Pulse Oximetry 98 96 95 Oxygen Delivery Method 02/04/22 11:30 02/04/22 12:00 02/04/22 12:08 Temperature Pulse Rate 72 83 86 Respiratory Rate 10 L 12 19 Blood Pressure Pulse Oximetry 95 97 96 Oxygen Delivery Method 02/04/22 12:08 02/04/22 12:30 02/04/22 12:30 Temperature Pulse Rate 85 Respiratory Rate 12 Blood Pressure 123/81 130/73 Pulse Oximetry 95 Oxygen Delivery Method 02/04/22 13:01 02/04/22 13:02 02/04/22 13:02 Temperature Pulse Rate 79 81 Respiratory Rate 10 L Blood Pressure 136/76 Pulse Oximetry 98 Oxygen Delivery Method 02/04/22 13:30 02/04/22 13:30 02/04/22 14:00 Temperature Pulse Rate 82 Respiratory Rate 18 Blood Pressure 146/83 H 140/86 Pulse Oximetry 97 Oxygen Delivery Method 02/04/22 14:00 Temperature Pulse Rate 81 Respiratory Rate 16 Blood Pressure Pulse Oximetry 96 Oxygen Delivery Method Oxygen Delivery Method Room Air Narrative Exam Narrative: GEN: no acute distress HEENT: moist mucous membranes, PERRL NECK: trachea midline, no JVD CV: regular rate and rhythm, no murmurs PULM: clear bilaterally ABD: soft, nontender, nondistended, no organomegaly EXT: warm and well perfused with no edema NEURO: awake, alert, oriented, no focal deficits Objective Labs Result Diagrams: 02/04/22 09:50 02/04/22 09:50 Labs: Laboratory Results - last 24 hr 02/04/22 02/04/22 02/04/22 09:50 09:50 09:50 WBC 5.4 RBC 5.47 Hgb 16.1 Hct 47.3 MCV 86.6 MCH 29.5 MCHC 34.1 RDW 13.4 Plt Count 203 Neut % (Auto) 71.8 Lymph % (Auto) 18.4 L [place] % (Auto) 8.2 Eos % (Auto) 1.2 L Baso % (Auto) 0.4 Neut # (Auto) 3900 Lymph # (Auto) 1000 L [place] # (Auto) 400 Eos # (Auto) 100 Baso # (Auto) 0 D-Dimer Sodium 140 Potassium 3.9 Chloride 101 Carbon Dioxide 30 BUN 15 Creatinine 0.81 Estimated GFR > 60 BUN/Creatinine Ratio 18.5 Glucose 118 H Hemoglobin A1c Lactate 1.0 Calcium 9.5 Total Bilirubin 0.7 AST 36 ALT 49 Alkaline Phosphatase 50 Total Creatine Kinase CK-MB (CK-2) CK-MB (CK-2) Rel Index Troponin I NT-Pro-B Natriuret Pep Total Protein 8.1 Albumin 4.9 Globulin 3.2 Albumin/Globulin Ratio 1.5 Lipase SARS-CoV-2 (PCR) 02/04/22 02/04/22 02/04/22 09:50 09:50 09:50 WBC RBC Hgb Hct MCV MCH MCHC RDW Plt Count Neut % (Auto) Lymph % (Auto) [place] % (Auto) Eos % (Auto) Baso % (Auto) Neut # (Auto) Lymph # (Auto) [place] # (Auto) Eos # (Auto) Baso # (Auto) D-Dimer < 215 Sodium Potassium Chloride Carbon Dioxide BUN Creatinine Estimated GFR BUN/Creatinine Ratio Glucose Hemoglobin A1c Lactate Calcium Total Bilirubin AST ALT Alkaline Phosphatase Total Creatine Kinase 126 CK-MB (CK-2) 1.78 CK-MB (CK-2) Rel Index 1.4 L Troponin I < 0.012 NT-Pro-B Natriuret Pep 20 Total Protein Albumin Globulin Albumin/Globulin Ratio Lipase SARS-CoV-2 (PCR) Negative 02/04/22 02/04/22 02/04/22 09:50 09:50 12:07 WBC RBC Hgb Hct MCV MCH MCHC RDW Plt Count Neut % (Auto) Lymph % (Auto) [place] % (Auto) Eos % (Auto) Baso % (Auto) Neut # (Auto) Lymph # (Auto) [place] # (Auto) Eos # (Auto) Baso # (Auto) D-Dimer Sodium Potassium Chloride Carbon Dioxide BUN Creatinine Estimated GFR BUN/Creatinine Ratio Glucose Hemoglobin A1c 6.5 H Lactate Calcium Total Bilirubin AST ALT Alkaline Phosphatase Total Creatine Kinase CK-MB (CK-2) CK-MB (CK-2) Rel Index Troponin I < 0.012 NT-Pro-B Natriuret Pep Total Protein Albumin Globulin Albumin/Globulin Ratio Lipase 160 SARS-CoV-2 (PCR) Assessment & Plan Assessment & Plan narrative: # exertional dyspnea, fatigue -patient denies CP, unclear if dyspnea is cardiac but with normal chest x-ray but and has strong cardiac family history particularly his father with a cardiac bypass at age 40 will workup -troponin negative x2 -obtain echo -will order stress test for risk stratification -start aspirin 81 mg daily -continue home pravastatin, if stress test is abnormal will change to high- intensity statin -TSH normal -should have outpatient workup with PCP for testosterone insufficiency -consider outpatient EMG with neurology in case this is early onset ALS as patient's mother from it # type 2 diabetes -hold home dulaglutide and jardiance -carb controlled diet and low-dose sliding scale ordered -A1c 6.5% #hypertension, chronic -continue home amlodipine and losartan #hyperlipidemia, chronic -continue home pravastatin #obstructive sleep apnea -uses CPAP at night Code status is full code. COVID negative. DVT prophylaxis with Lovenox. Proxy is Ryanne. I have reviewed home meds and used all available resources to reconcile the home meds. Dispo: Admit under observation status and if stress test and echo normal will discharge tomorrow. Time Spent With Patient Critical Care time: I spent a total of [] minutes of critical care time on this patient's care today; this time is exclusive of procedural time.
[2022-02-04] MEDS: PANTOPRAZOLE DR 40 MG TABLET PO (20:07)
[2022-02-04] MEDS: PRAVASTATIN 20 MG TABLET 40 MG PO (20:07)
[2022-02-05 06:06] VITALS: BP 141/83; PULSE 79; RESP 17; O2SAT 96
[2022-02-05 06:24] LABS: Add Manual Diff / Slide Review NO; Basophils Absolute Auto 0 /uL (0-100); Basophils Percent Auto 0.4 % (0-2); Eosinophils Absolute Auto 100 /uL (0-450); Eosinophils Percent Auto 1.2 % (2-4); Hematocrit 45.2 % (41-53); Hemoglobin 15.5 g/dL (13.5-17.5); Lymphocytes Absolute Auto 1100 /uL (1100-4500); Lymphocytes Percent Auto 19.5 % (25-40); Mean Corpuscular HGB Conc 34.3 % (30-36); Mean Corpuscular Hemoglobin 29.7 PG (26-34); Mean Corpuscular Volume 86.3 fL (80-100); Monocytes Absolute Auto 500 /uL (0-900); Monocytes Percent Auto 9.1 % (3-14); Neutrophils Absolute Auto 3800 /uL (1500-7000); Neutrophils Percent Auto 69.8 % (50-75); Platelet Count 186 X10^3/uL (150-400); Red Blood Cell Count 5.24 X10^6/uL (4.5-5.9); Red Cell Distribution Width 13.3 % (11.6-14.8); White Blood Cell Count 5.4 X10^3/uL (4.5-11.0)
[2022-02-05 06:28] LABS: Magnesium 2.1 mg/dL (1.6-2.3)
[2022-02-05 06:29] LABS: BUN Creatinine Ratio 23.5 (6-22); Blood Urea Nitrogen 23 mg/dL (9-20); Calcium 9.3 mg/dL (8.4-10.2); Carbon Dioxide 31 mmol/L (22-32); Chloride 102 mmol/L (98-107); Estimated Glomerular Filt Rate > 60 mL/min (>60); Glucose 130 mg/dL (80-110); HEMOLYSIS 18 (0-50); Potassium 4.6 mmol/L (3.4-5.1); Sodium 140 mmol/L (137-145)
[2022-02-05 07:55] VITALS: BP 127/84; PULSE 89; RESP 17; TEMP 36.8; O2SAT 95
--- NOTE | 2022-02-05 08:20 | P.DS_ITS ---
History of Present Illness History of Present Illness Date Patient Seen: 02/05/22 Time Patient Seen: 16:00 Chief complaint: nausea,sob,unsteady,fainting spells Narrative: Kashif Ryan is a 66yo male with PMH of HTN, HLD, DM2, ANGEL, and strong family history of heart disease who presents with dyspnea, fatigue, nausea and presyncope. Patient states for about 6 months he has had ongoing severe fatigue with occasional nausea and sensation like he is going to pass out. Prior to this he had a workup for acute cholecystitis due to chronic nausea and belching and was found to have acalculous cholecystitis so his gallbladder was removed which improved the symptoms. However a couple of months later the nausea returned and he developed severe fatigue with occasional dyspnea. Denies any chest pain. Has never had an echo of his heart, but had stress tests in the past which were normal. His father had a triple bypass at age 47 and another bypass at age 60. His mother from ALS. Patient sleep apnea and reports good compliance with his CPAP and outpatient appointment with sleep clinic just a month ago. He reports never having his testosterone checked and not having a morning erection for quite some time. Has a history of bilateral adrenal nodules followed by gen surg and had a normal dexamethasone suppression test in 2020. Denies lack of sleep. No headache, vision changes, rashes, joint pains, abd pain, urinary symptoms or LE swelling. Discharge Providers Provider Date of admission: 02/04/22 13:27 Discharge Date: 02/05/22 Primary care physician: Cheryl Borjas DO Discharge provider: Adama Briones DO Summary Hospital Course Discharge Diagnosis: # exertional dyspnea, fatigue -patient denies CP, unclear if dyspnea is cardiac but with normal chest x-ray but and has strong cardiac family history particularly his father with a cardiac bypass at age 40 will workup -troponin negative x2 -echo with EF 50-55% and normal -nuc med stress test normal -start aspirin 81 mg daily -continue home pravastatin, if stress test is abnormal will change to high- intensity statin -TSH normal -should have outpatient workup with PCP for testosterone insufficiency -strongly felt to be due to patient's sleep apnea and recommended he obtain a new sleep study, as previous sleep study showed severe ANGEL with 36 apniec events per hour # type 2 diabetes -hold home dulaglutide and jardiance -carb controlled diet and low-dose sliding scale ordered -A1c 6.5% #hypertension, chronic -continue home amlodipine and losartan #hyperlipidemia, chronic -continue home pravastatin #obstructive sleep apnea -uses CPAP at night -recommended repeat sleep study given chronic fatigue without other obvious cause Hospital Course: Admitted for dyspnea and fatigue concerning to be cardiac given patient's strong family history of [place]. Underwent stress test and echo which were normal. [facility] that most likely his fatigue was due to his sleep apnea, which despite him using his CPAP he will likely need a new sleep study to look for any worsening of it. Recommended he follow up with his sleep medicine physician and patient agreed. Time Spent with Patient Time spent: Greater than 30 minutes Exam Vital Signs (past 8 hours): - 02/05/22 06:06 02/05/22 07:55 Temperature 98.2 F Pulse Rate 79 89 Respiratory Rate 17 17 Blood Pressure 141/83 H 127/84 Pulse Oximetry 96 95 Oxygen Flow Rate 0 Oxygen Delivery Method Room Air Oxygen Flow Rate 0 Narrative Exam Narrative: GEN: no acute distress HEENT: moist mucous membranes, PERRL NECK: trachea midline, no JVD CV: regular rate and rhythm, no murmurs PULM: clear bilaterally ABD: soft, nontender, nondistended, no organomegaly EXT: warm and well perfused with no edema NEURO: awake, alert, oriented, no focal deficits Objective Labs Result Diagrams: 02/05/22 06:01 02/05/22 06:01 Labs: Laboratory Results - last 24 hr 02/04/22 02/04/22 02/04/22 09:50 09:50 09:50 WBC 5.4 RBC 5.47 Hgb 16.1 Hct 47.3 MCV 86.6 MCH 29.5 MCHC 34.1 RDW 13.4 Plt Count 203 Neut % (Auto) 71.8 Lymph % (Auto) 18.4 L [place] % (Auto) 8.2 Eos % (Auto) 1.2 L Baso % (Auto) 0.4 Neut # (Auto) 3900 Lymph # (Auto) 1000 L [place] # (Auto) 400 Eos # (Auto) 100 Baso # (Auto) 0 D-Dimer Sodium 140 Potassium 3.9 Chloride 101 Carbon Dioxide 30 BUN 15 Creatinine 0.81 Estimated GFR > 60 BUN/Creatinine Ratio 18.5 Glucose 118 H Hemoglobin A1c Lactate 1.0 Calcium 9.5 Magnesium Total Bilirubin 0.7 AST 36 ALT 49 Alkaline Phosphatase 50 Total Creatine Kinase CK-MB (CK-2) CK-MB (CK-2) Rel Index Troponin I NT-Pro-B Natriuret Pep Total Protein 8.1 Albumin 4.9 Globulin 3.2 Albumin/Globulin Ratio 1.5 Lipase SARS-CoV-2 (PCR) 02/04/22 02/04/22 02/04/22 09:50 09:50 09:50 WBC RBC Hgb Hct MCV MCH MCHC RDW Plt Count Neut % (Auto) Lymph % (Auto) [place] % (Auto) Eos % (Auto) Baso % (Auto) Neut # (Auto) Lymph # (Auto) [place] # (Auto) Eos # (Auto) Baso # (Auto) D-Dimer < 215 Sodium Potassium Chloride Carbon Dioxide BUN Creatinine Estimated GFR BUN/Creatinine Ratio Glucose Hemoglobin A1c Lactate Calcium Magnesium Total Bilirubin AST ALT Alkaline Phosphatase Total Creatine Kinase 126 CK-MB (CK-2) 1.78 CK-MB (CK-2) Rel Index 1.4 L Troponin I < 0.012 NT-Pro-B Natriuret Pep 20 Total Protein Albumin Globulin Albumin/Globulin Ratio Lipase SARS-CoV-2 (PCR) Negative 02/04/22 02/04/22 02/04/22 09:50 09:50 12:07 WBC RBC Hgb Hct MCV MCH MCHC RDW Plt Count Neut % (Auto) Lymph % (Auto) [place] % (Auto) Eos % (Auto) Baso % (Auto) Neut # (Auto) Lymph # (Auto) [place] # (Auto) Eos # (Auto) Baso # (Auto) D-Dimer Sodium Potassium Chloride Carbon Dioxide BUN Creatinine Estimated GFR BUN/Creatinine Ratio Glucose Hemoglobin A1c 6.5 H Lactate Calcium Magnesium Total Bilirubin AST ALT Alkaline Phosphatase Total Creatine Kinase CK-MB (CK-2) CK-MB (CK-2) Rel Index Troponin I < 0.012 NT-Pro-B Natriuret Pep Total Protein Albumin Globulin Albumin/Globulin Ratio Lipase 160 SARS-CoV-2 (PCR) 02/05/22 02/05/22 02/05/22 06:01 06:01 06:01 WBC 5.4 RBC 5.24 Hgb 15.5 Hct 45.2 MCV 86.3 MCH 29.7 MCHC 34.3 RDW 13.3 Plt Count 186 Neut % (Auto) 69.8 Lymph % (Auto) 19.5 L [place] % (Auto) 9.1 Eos % (Auto) 1.2 L Baso % (Auto) 0.4 Neut # (Auto) 3800 Lymph # (Auto) 1100 [place] # (Auto) 500 Eos # (Auto) 100 Baso # (Auto) 0 D-Dimer Sodium 140 Potassium 4.6 Chloride 102 Carbon Dioxide 31 BUN 23 H Creatinine 0.98 Estimated GFR > 60 BUN/Creatinine Ratio 23.5 H Glucose 130 H Hemoglobin A1c Lactate Calcium 9.3 Magnesium 2.1 Total Bilirubin AST ALT Alkaline Phosphatase Total Creatine Kinase CK-MB (CK-2) CK-MB (CK-2) Rel Index Troponin I NT-Pro-B Natriuret Pep Total Protein Albumin Globulin Albumin/Globulin Ratio Lipase SARS-CoV-2 (PCR) PFSH Medical History Chronic back pain Diabetes mellitus (2014) Essential hypertension Excessive daytime sleepiness (~2015) Foot infection (1998) Hyperlipidemia associated with type 2 diabetes mellitus (02/27/17) Insomnia due to medical condition (~2015) Obstructive sleep apnea, adult (~11/26/20) Snoring (~2015) Surgical History Anesthesia History of foot surgery (1998) Status post discectomy (2015) Family History Brother Hypertension High cholesterol Father Heart disease Hypertension High cholesterol Diabetes mellitus Hx of CABG Mother Hypertension ALS (amyotrophic lateral sclerosis) Brother No problems noted. Sister MS (multiple sclerosis) Family/Other Arrhythmia Congestive heart failure Social History marital status: details: lamar Pearl, lives in [place] household members: spouse lives independently: Yes caregiver/support person: No housing: house Smoking Status: Former smoker alcohol intake: never substance use type: does not use Discharge Plan Discharge Plan Patient Disposition: Home Discharge orders & Medications Prescriptions: New aspirin 81 mg Tablet,Delayed Release (Dr/Ec) 81 mg PO DAILY Qty: 90 0RF Continued Trulicity 0.75 mg/0.5 mL pen injector 0.75 mg SUBCUT QWEEK (DME) [employer] Aida 14 Day [place] [facility] [place] See Rx Instructions .ROUTE .MEDSUPPLY Qty: 1 Rx Instructions: As directed losartan 50 mg tablet 50 mg PO DAILY Qty: 90 2RF pravastatin 40 mg tablet 40 mg PO DAILY Qty: 90 3RF amlodipine 10 mg tablet 10 mg PO DAILY Label Comments: TAKE 1 TABLET BY MOUTH DAILY Jardiance 25 mg tablet 25 mg PO DAILY Label Comments: TAKE 1 TABLET BY MOUTH DAILY (DME) ResMed AirSense 10 auto See Rx Instructions .Route .MEDSUPPLY Rx Instructions: CPAP Min: 6 Max: 16 DME: PHM TALIA: 12/13/20 Follow up/Referrals: Cheryl Borjas DO [Primary Care Provider] - Discharge Data Primary Care Provider: Cheryl Borjas Attending Provider: Adama Briones
--- NOTE | 2022-02-05 09:43 | PC.NURSE ---
Addendum entered by Gracia Storm R.N. 02/05/22 17:40: Pt received D/C orders, home instructions given. HL discontinued, intact. Tele removed. Pt escorted by staff via W/C to waiting vehicle D/C in stable condition. Original Note: Pt denies discomfort. SpO2 97% RA Sent for stress test this a.m. Returned to room at [address] HL RAC intact/patent. Call light w/in reach, pt calls apprpriately for needs. Continue w/plan of care.
--- NOTE | 2022-02-05 10:20 | DI.CT.S_ITS ---
PROCEDURE: CT CHEST ABD PEL W CON INDICATIONS: pulm nodule, extreme fatigue and occasional night sweats TECHNIQUE: After the administration of oral and intravenous contrast, axial sections acquired from the supraclavicular neck to the pubic symphysis. Coronal and sagittal reformats were performed. For radiation dose reduction, the following was used: automated exposure control, adjustment of mA and/or kV according to patient size. COMPARISON: [facility], CT, CT ABDOMEN WITH/WITHOUT AND PELVIS WITH CONTRAST, 12/14/2020, 8:41. [facility], CR, XR CHEST 2V, 02/04/2022, 10:00. [facility], CT, CT CHEST WO CON, 09/17/2018, 8:08. [facility], CT, CT ABDOMEN ADRENAL PROTOCOL, 07/09/2021, 10:56. FINDINGS: Image quality: Excellent. CHEST: Lower Neck: No enlarged lymph nodes. Thyroid: Within normal limits. Axillae: No enlarged lymph nodes. Chest Wall: Gynecomastia. Lungs and Airways: Right lower lobe pulmonary nodule measuring 0.4 cm, (), unchanged since 09/17/2018. A few calcified granuloma. Right upper trachea seal or esophageal diverticulum measuring at 3.3 cm, (09/04), similar to 2019. Pleura: No pneumothorax or pleural effusions. Heart: Heart size is normal. Mild coronary artery calcifications. No pericardial effusion. Thoracic Vessels: The aorta and pulmonary arteries demonstrate normal size. Mediastinum and [place]: No enlarged lymph nodes. Esophagus: No wall thickening. No hiatal hernia. ABDOMEN: Liver: No focal lesion. Gallbladder: Absent. Biliary ducts: Unremarkable. Pancreas: Unremarkable. Spleen: Unremarkable. Adrenal Glands: Small left adrenal nodules x2 are unchanged and previously characterized as benign adenomas. Kidneys and Ureters: No hydronephrosis. Small simple cyst in the right kidney. Stomach and Bowel: Diverticulosis. No diverticulitis. Normal appendix. No small bowel obstruction. Peritoneum: No abnormal intraperitoneal fluid. No free air. Ventral Wall: No hernia. Abdominal Nodes: No retroperitoneal or mesenteric adenopathy by size criteria. Vessels: Aorta and inferior vena cava are normal in size. Moderate atherosclerotic calcifications. PELVIS: Pelvic Organs: Unremarkable. Bladder: Distended. No stones. Pelvic Nodes: No enlarged lymph nodes. Miscellaneous: Fat containing inguinal hernias. Bones: No suspicious lesion. Lucency at T10 is unchanged since 2020 and has a benign appearance such as an intraosseous hemangioma. IMPRESSION: 1. Right lower lobe pulmonary nodule measuring 0.4 cm is unchanged since 2019 suggesting a benign etiology. 2. No mass. No adenopathy. No free fluid. 3. Small left adrenal nodules are unchanged. These were previously characterized as benign adenomas. Dictated by: Lobito Argueta M.D. on 02/05/2022 at 10:45 Approved by: Lobito Argueta M.D. on 02/05/2022 at 11:00
[2022-02-05 12:15] VITALS: BP 110/78; PULSE 82; RESP 16; TEMP 36.3; O2SAT 95
--- NOTE | 2022-02-05 13:48 | CM.DANOTE ---
Patient is a 66 yo male who was admitted on 02/04/22 for Nausea/Weakness. Pt has [employer] and [employer] for insurance and his PCP is Dr. Cheryl Borjas. EMR was reviewed. Per MD, pt with dyspnea, nausea, syncopal episodes and admitted for cardiac workup. Pt to have stress test at [address] today and pending results may be able to d/c home later today. SW met briefly bedside with pt and explained role and pt confirms he lives in [place] with his spouse and is mostly independent with ADL's at baseline and has had chronic fatigue and some genetic predisposition in his family for significant medical dx. Pt denies any hx of HH or SNF and states spouse is his DPOA. Pt does not anticipate any needs at d/c and hopeful for a better diagnosis. Spouse plans to provide transport at d/c. Plan: SW to follow for Stress Test and CT results towards confirming safe plan of home later today via spouse POV and any further identified needs. KRYSTYNA Bullard Discharge Planning/Care Management CM Discharge Assessment Start: 02/05/22 13:46 Freq: Status: Active Protocol: Document 02/05/22 13:46 BF (Rec: 02/05/22 13:47 BF [id number]) Discharge Planning Assessment Assigned Day Guard KRYSTYNA Pena DPOA/Assigned Designee Name spouse Ryanne Contact Information [phone] Advance Directives? Yes Advance Directives on File No History Provided By Patient,Medical Record Has Patient been admitted in last 30 No days? Prior Living Arrangements Apartment/Condo Household Members spouse Type of transporation used prior to Drives own vehicle admit Independent with ADL's Yes Is patient alert and oriented? Yes Needs Assistance With Home Chores / Shopping Caregiver for Another No Barriers to Discharge No Discharge Plan Home Transportation Arrangement spouse to provide transport at d/c Referrals Initiated None needed Additional Comment Pending CT chest and stess test Whiteboard Updated in Patient Room with Yes name and ext. # of Day Guard Review Status In Process Please Provide Date Initial DC 02/05/22 Assessment Was Performed
[2022-02-05 15:50] VITALS: BP 139/82; PULSE 78; RESP 16; TEMP 36.3; O2SAT 97
--- NOTE | 2022-02-05 19:37 | DI.NM.S_ITS ---
DATE OF SERVICE: 02/05/2022 PROCEDURE PERFORMED: Exercise perfusion study. INDICATION: Shortness of breath with underlying diabetes mellitus, hypertension, hyperlipidemia, obstructive sleep apnea. RADIOPHARMACEUTICAL: 26.7 millicurie technetium-99m Myoview IV was injected at stress and 9.0 millicurie technetium-99m Myoview IV was injected at rest. CARDIAC STRESS: The patient underwent exercise perfusion study under the supervision of an attending staff. The patient walked on Rd protocol for 10 minutes and achieved 96 percent of target heart rate with maximum heart rate of 149 beats per minute. Resting blood pressure 132/88 mmHg. Peak blood pressure 180/88 mmHg. YING -25 percent. Achieved 12.8 METs of workload. No chest discomfort. Had some shortness of breath. Baseline rhythm was sinus. During stress, no convincing ischemic changes seen. Occasional PVC seen in recovery without any sustained arrhythmia. RAW DATA: There is increased subdiaphragmatic activity. GATED STUDY: Resting LV ejection fraction 90 percent without any obvious wall motion abnormalities. Lung/heart ratio 0.22, which is within normal limits. TID ratio 0.69, which is within normal limits. MYOCARDIAL PERFUSION SCAN: Stress supine and resting supine images revealed small size, mildly decreased perfusion of base to mid inferior wall, which got completely resolved during stress prone images suggestive of diaphragmatic tissue attenuation artifact. Stress prone images revealed normal myocardial perfusion. CONCLUSION: This is a normal myocardial perfusion study with evidence of diaphragmatic tissue attenuation artifact, which got completely resolved during stress prone images. Excellent exercise tolerance. Functional aerobic impairment -25 percent. Achieved 10.8 metabolic equivalents of workload. Walked on Rd protocol for 10 minutes. Normal hemodynamic response. No anginal pain. No significant arrhythmias or ischemic electrocardiographic changes. Stress left ventricular ejection fraction hyperdynamic. Overall low- risk exercise perfusion study. Kashif Ryan - YARELI/tana/ana doc#: [id number]/job#: [id number] dd: 02/05/2022 16:46:00 dt: 02/05/2022 19:29:00 DICTATING MD/COPIES TO: Cabrera Meredith MD COPIES MNE: GIANNI;
== END 2022-02-05 17:45 | disposition home or self-care (01) ==
LOC: ED 12:16 → AC 13:28
PROVIDERS: Admitting Provider Student in an Organized Health Care Education/Training Program; Emergency Provider Emergency Medicine; PCP Family Medicine; Referring Provider Emergency Medicine; Visit Provider Student in an Organized Health Care Education/Training Program
DX: R06.09 Other forms of dyspnea (principal); R53.83 Other fatigue; E11.9 Type 2 diabetes mellitus without complications; I10 Essential (primary) hypertension; E78.5 Hyperlipidemia, unspecified; G47.33 Obstructive sleep apnea (adult) (pediatric); Z20.822 Contact with and (suspected) exposure to COVID-19; Z87.891 Personal history of nicotine dependence; Z79.84 Long term (current) use of oral hypoglycemic drugs; Z79.899 Other long term (current) drug therapy; Z82.49 Family history of ischemic heart disease and other diseases of the circulatory system
CPT/HCPCS: 36415; 71046; 71260; 74177; 78452; 80048; 80053; 81003; 82550; 82553; 82962; 83036; 83605; 83690; 83735; 83880; 84484; 85025; 85379; 87635; 93005; 93017; 93306; 99284; C9803; G0378; A9502; J1815

== ENCOUNTER → 2022-03-07 07:49 | Outpatient (CLI) | payer MEDICARE, OTHER, SELFPAY ==
[2022-02-06 10:22] VITALS: BMI 26.3
[2022-03-07 09:10] LABS: C-Reactive Protein Quant 0.8 mg/dL (<1.0)
[2022-03-11 13:46] LABS: Acetylcholine Blocking AB 10 % (0-25); Acetylcholine Receptor Bind AB <0.03 nmol/L (0.00-0.24)
[2022-03-11 14:37] LABS: ANA Screen, IFA Negative (.)
[2022-03-18 09:42] LABS: Percent Free Testosterone 2.16 % (1.50-4.20); Testosterone Free 4.82 ng/dL (5.00-21.00)
== END ==
PROVIDERS: PCP Family Medicine; Referring Provider Family Medicine; Visit Provider Family Medicine
DX: R53.82 Chronic fatigue, unspecified (principal)
CPT/HCPCS: 36415; 83519; 84402; 84403; 86038; 86140

== ENCOUNTER → 2022-06-30 07:09 | Outpatient (CLI) | payer MEDICARE, OTHER, SELFPAY ==
[2022-02-06 10:22] VITALS: BMI 26.3
[2022-06-30 09:04] LABS: Follicle Stimulating Hormone 38.7 mIU/mL; Luteinizing Hormone 7.54 mIU/mL
[2022-06-30 09:09] LABS: Prolactin 9.6 ng/mL (3.7-17.9)
[2022-06-30 09:23] LABS: Prostate Specific Antigen 3.02 ng/mL (0.10-4.00)
[2022-07-07 07:17] LABS: Percent Free Testosterone 1.52 % (1.50-4.20); Testosterone Free 3.66 ng/dL (5.00-21.00); Testosterone Total 240.6 ng/dL (264.0-916.0)
== END ==
PROVIDERS: PCP Family Medicine; Referring Provider Internal Medicine Endocrinology, Diabetes & Metabolism; Visit Provider Internal Medicine Endocrinology, Diabetes & Metabolism
DX: R79.89 Other specified abnormal findings of blood chemistry (principal); Z12.5 Encounter for screening for malignant neoplasm of prostate
CPT/HCPCS: 36415; 83001; 83002; 84146; 84153; 84270; 84402; 84403; G0103

== ENCOUNTER → 2022-09-01 07:01 | Outpatient (CLI) | payer MEDICARE, OTHER, SELFPAY ==
[2022-02-06 10:22] VITALS: BMI 26.3
[2022-09-01 08:40] LABS: Hemoglobin 14.9 g/dL (13.5-17.5)
[2022-09-01 08:45] LABS: Creatinine Urine Random 78.5 mg/dL
[2022-09-01 09:52] LABS: Microalbumin Urine Random < 0.6 mg/dL (0-1.6)
[2022-09-01 10:24] LABS: Alanine Aminotransferase 32 IU/L (<50); Albumin 4.5 g/dL (3.5-5.0); Albumin Globulin Ratio 1.6 (1.0-2.8); Alkaline Phosphatase 40 U/L (38-126); Aspartate Aminotransferase 23 IU/L (17-59); BUN Creatinine Ratio 19.8 (6-22); Bilirubin Total 0.7 mg/dL (0.2-1.3); Blood Urea Nitrogen 16 mg/dL (9-20); Calcium 9.1 mg/dL (8.4-10.2); Carbon Dioxide 26 mmol/L (22-32); Chloride 105 mmol/L (98-107); Cholesterol 167 mg/dL (140-199); Estimated Glomerular Filt Rate > 60 mL/min (>60); Globulin 2.8 g/dL (1.7-4.1); Glucose 151 mg/dL (80-110); HDL Cholesterol 44 mg/dL (40-60); HEMOLYSIS < 15 (0-50); LDL Cholesterol Calculated 106 mg/dL (<100); Potassium 4.2 mmol/L (3.4-5.1); Sodium 141 mmol/L (137-145); Total Protein 7.3 g/dL (6.3-8.2); Triglycerides 85 mg/dL (35-150)
[2022-09-02 08:58] LABS: Labcorp Hemoglobin (Hb) A1c 6.9 % (4.8-5.6)
[2022-09-15 10:12] LABS: Percent Free Testosterone 1.52 % (1.50-4.20); Testosterone Free 2.76 ng/dL (5.00-21.00); Testosterone Total 181.7 ng/dL (264.0-916.0)
== END ==
PROVIDERS: PCP Family Medicine; Referring Provider Internal Medicine Endocrinology, Diabetes & Metabolism; Visit Provider Internal Medicine Endocrinology, Diabetes & Metabolism
DX: R79.89 Other specified abnormal findings of blood chemistry (principal); E11.42 Type 2 diabetes mellitus with diabetic polyneuropathy
CPT/HCPCS: 36415; 80053; 80061; 82043; 82570; 83036; 84402; 84403; 85014; 85018

== ENCOUNTER → 2022-11-21 06:57 | Outpatient (CLI) | payer MEDICARE, OTHER, SELFPAY ==
[2022-02-06 10:22] VITALS: BMI 26.3
[2022-11-21 07:44] LABS: Add Manual Diff / Slide Review NO; Basophils Absolute Auto 0 /uL (0-100); Basophils Percent Auto 0.4 % (0-2); Eosinophils Absolute Auto 100 /uL (0-450); Eosinophils Percent Auto 1.5 % (2-4); Lymphocytes Absolute Auto 800 /uL (1100-4500); Lymphocytes Percent Auto 16.8 % (25-40); Mean Corpuscular HGB Conc 34.8 % (30-36); Mean Corpuscular Hemoglobin 30.1 PG (26-34); Mean Corpuscular Volume 86.5 fL (80-100); Monocytes Absolute Auto 300 /uL (0-900); Monocytes Percent Auto 7.2 % (3-14); Neutrophils Absolute Auto 3300 /uL (1500-7000); Neutrophils Percent Auto 74.1 % (50-75); Platelet Count 200 X10^3/uL (150-400); Red Blood Cell Count 4.97 X10^6/uL (4.5-5.9); Red Cell Distribution Width 13.6 % (11.6-14.8); White Blood Cell Count 4.5 X10^3/uL (4.5-11.0)
[2022-11-21 08:17] LABS: Alanine Aminotransferase 31 IU/L (<50); Albumin 4.6 g/dL (3.5-5.0); Albumin Globulin Ratio 1.8 (1.0-2.8); Alkaline Phosphatase 45 U/L (38-126); Aspartate Aminotransferase 24 IU/L (17-59); BUN Creatinine Ratio 23.8 (6-22); Bilirubin Total 0.5 mg/dL (0.2-1.3); Blood Urea Nitrogen 20 mg/dL (9-20); Calcium 9.4 mg/dL (8.4-10.2); Carbon Dioxide 30 mmol/L (22-32); Chloride 102 mmol/L (98-107); Cholesterol 171 mg/dL (140-199); Estimated Glomerular Filt Rate > 60 mL/min (>60); Globulin 2.5 g/dL (1.7-4.1); Glucose 132 mg/dL (80-110); HDL Cholesterol 44 mg/dL (40-60); HEMOLYSIS < 15 (0-50); LDL Cholesterol Calculated 110 mg/dL (<100); Potassium 4.2 mmol/L (3.4-5.1); Sodium 140 mmol/L (137-145); Total Protein 7.1 g/dL (6.3-8.2); Triglycerides 87 mg/dL (35-150)
[2022-11-21 08:32] LABS: Free T4, Direct Thyroxine 0.99 ng/dL (0.78-2.19)
[2022-11-21 08:45] LABS: Thyroid Stimulating Hormone 2.47 uIU/mL (0.47-4.68)
[2022-11-22 05:25] LABS: Labcorp Hemoglobin (Hb) A1c 6.9 % (4.8-5.6)
[2022-11-27 07:17] LABS: Testosterone Free 7.33 ng/dL (5.00-21.00); Testosterone Total 385.6 ng/dL (264.0-916.0)
== END ==
PROVIDERS: PCP Nurse Practitioner Family; Referring Provider Internal Medicine Endocrinology, Diabetes & Metabolism; Visit Provider Internal Medicine Endocrinology, Diabetes & Metabolism
DX: R79.89 Other specified abnormal findings of blood chemistry (principal); E11.42 Type 2 diabetes mellitus with diabetic polyneuropathy; R53.83 Other fatigue; I10 Essential (primary) hypertension; F41.9 Anxiety disorder, unspecified; F32.A Depression, unspecified
CPT/HCPCS: 36415; 80053; 80061; 83036; 84402; 84403; 84439; 84443; 85025

== ENCOUNTER → 2023-02-27 06:55 | Outpatient (CLI) | payer MEDICARE, OTHER, SELFPAY ==
[2022-02-06 10:22] VITALS: BMI 26.3
[2023-02-27 08:44] LABS: Hematocrit 43.8 % (41-53)
[2023-02-27 09:05] LABS: Hemoglobin A1C% w Est Avg Glu 6.6 % (4.0-6.0)
[2023-02-27 09:14] LABS: Alanine Aminotransferase 33 IU/L (<50); Albumin 4.6 g/dL (3.5-5.0); Albumin Globulin Ratio 1.8 (1.0-2.8); Alkaline Phosphatase 47 U/L (38-126); Aspartate Aminotransferase 27 IU/L (17-59); BUN Creatinine Ratio 20.7 (6-22); Bilirubin Total 0.7 mg/dL (0.2-1.3); Blood Urea Nitrogen 17 mg/dL (9-20); Calcium 9.6 mg/dL (8.4-10.2); Carbon Dioxide 27 mmol/L (22-32); Chloride 102 mmol/L (98-107); Cholesterol 177 mg/dL (140-199); Estimated Glomerular Filt Rate > 60 mL/min (>60); Globulin 2.6 g/dL (1.7-4.1); Glucose 133 mg/dL (80-110); HDL Cholesterol 40 mg/dL (40-60); HEMOLYSIS < 15 (0-50); LDL Cholesterol Calculated 112 mg/dL (<100); Potassium 4.1 mmol/L (3.4-5.1); Sodium 139 mmol/L (137-145); Total Protein 7.2 g/dL (6.3-8.2); Triglycerides 126 mg/dL (35-150)
[2023-02-27 09:34] LABS: Testosterone 294 ng/dL (71.8-623)
[2023-02-27 11:15] LABS: Creatinine Urine Random 88.8 mg/dL
[2023-02-27 11:20] LABS: Microalbumi Creatinin Ratio Ur 7.8 ug/mg CR (<30); Microalbumin Urine Random 0.7 mg/dL (0-1.6)
== END ==
PROVIDERS: PCP Nurse Practitioner Family; Referring Provider Internal Medicine Endocrinology, Diabetes & Metabolism; Visit Provider Internal Medicine Endocrinology, Diabetes & Metabolism
DX: R79.89 Other specified abnormal findings of blood chemistry (principal); E11.42 Type 2 diabetes mellitus with diabetic polyneuropathy
CPT/HCPCS: 36415; 80053; 80061; 82043; 82570; 83036; 84403; 85014; 85018

== ENCOUNTER → 2023-07-06 06:58 | Outpatient (CLI) | payer MEDICARE, OTHER, SELFPAY ==
[2022-02-06 10:22] VITALS: BMI 26.3
[2023-07-06 07:54] LABS: Hematocrit 41.7 % (41-53); Hemoglobin 14.3 g/dL (13.5-17.5)
[2023-07-06 08:03] LABS: Hemoglobin A1C% w Est Avg Glu 6.9 % (4.0-6.0)
[2023-07-06 08:29] LABS: Alanine Aminotransferase 31 IU/L (<50); Albumin 4.2 g/dL (3.5-5.0); Albumin Globulin Ratio 1.8 (1.0-2.8); Alkaline Phosphatase 43 U/L (38-126); Aspartate Aminotransferase 26 IU/L (17-59); BUN Creatinine Ratio 17.5 (6-22); Bilirubin Total 0.5 mg/dL (0.2-1.3); Blood Urea Nitrogen 17 mg/dL (9-20); Calcium 9.6 mg/dL (8.4-10.2); Carbon Dioxide 27 mmol/L (22-32); Chloride 103 mmol/L (98-107); Cholesterol 146 mg/dL (140-199); Estimated Glomerular Filt Rate > 60 mL/min (>60); Globulin 2.4 g/dL (1.7-4.1); Glucose 148 mg/dL (80-110); HDL Cholesterol 43 mg/dL (40-60); HEMOLYSIS < 15 (0-50); LDL Cholesterol Calculated 87 mg/dL (<100); Potassium 4.5 mmol/L (3.4-5.1); Sodium 138 mmol/L (137-145); Total Protein 6.6 g/dL (6.3-8.2); Triglycerides 81 mg/dL (35-150)
[2023-07-06 09:01] LABS: Testosterone 161 ng/dL (71.8-623)
[2023-07-06 09:09] LABS: Creatinine Urine Random 60.9 mg/dL
[2023-07-06 09:29] LABS: Microalbumin Urine Random < 0.6 mg/dL (0-1.6)
== END ==
LOC: LAB 07:00
PROVIDERS: PCP Nurse Practitioner Family; Referring Provider Internal Medicine Endocrinology, Diabetes & Metabolism; Visit Provider Internal Medicine Endocrinology, Diabetes & Metabolism
DX: E11.42 Type 2 diabetes mellitus with diabetic polyneuropathy (principal); R79.89 Other specified abnormal findings of blood chemistry
CPT/HCPCS: 36415; 80053; 80061; 82043; 82570; 83036; 84403; 85014; 85018

== ENCOUNTER → 2024-05-09 07:46 | Outpatient (CLI) | payer MEDICARE, OTHER, SELFPAY ==
[2022-02-06 10:22] VITALS: BMI 26.3
--- NOTE | 2024-05-09 | DI.ECHO.S_ITS ---
[facility] : : [id number] : [place] : : [id number] : : Phone: [phone] Echocardiogram Report + + :Name: KENDAL DAVID Study Date: 05/09/2024 Height: 72 in : :Hospital ReadingLocation: Weight: 200 lb : : Gender: Male BSA: 2.1 m2 : :: 1955 Age: 68 yrs BP: 132/81 mmHg: :Reason For Study: SHORTNESS OF BREATH : :Ordering Physician: WILBERT, : :SHAI Performed By: Jose Yoo : :Referring: SHAI PETERSON : + + Interpretation Summary 1) Normal left ventricular thickness, size, wall motion, and systolic function (EF 60-65%). 2) Normal right ventricular size and function. 3) No significant valvular abnormalities. 4) The right ventricular systolic pressure is estimated to be at least 24 mmHg based on an estimated right atrial pressure of 3 mm Hg. 5) Compared to the Echo done 02/04/2022, no significant change. Procedure: A two-dimensional transthoracic echocardiogram with color flow and Doppler was performed. The study quality was technically good. Comparison is made with the echocardiogram of 02/04/2022. The patient was in normal sinus rhythm during the exam. Left Ventricle: The left ventricle is normal in size. There is normal left ventricular wall thickness. There is no ventricular septal defect visualized. The ejection fraction is estimated to be 60-65%. There are no focal wall motion abnormalities. Diastolic parameters suggest probable normal left ventricular diastolic function and normal filling pressures. Right Ventricle: The right ventricle is normal in size and function. Atria: The left atrial size is normal. Right atrial size is normal. There is no Doppler evidence for an atrial septal defect. Mitral Valve: The mitral valve is normal in structure and function. There is mild mitral regurgitation. Aortic Valve: The aortic valve is trileaflet. The aortic valve opens well. There is no aortic valve stenosis. No aortic regurgitation is present. Tricuspid Valve: The tricuspid valve is normal in structure and function. There is trace tricuspid regurgitation. The right ventricular systolic pressure is estimated to be at least 24 mmHg based on an estimated right atrial pressure of 3 mm Hg. Pulmonic Valve: The pulmonic valve is normal in structure and function. There is trace pulmonic regurgitation. Great Vessels: The aortic root is not well visualized. The dimensions of the ascending aorta are normal. The pulmonary artery is normal size. The IVC is of normal diameter and collapses greater than 50% with a sniff. This suggests a low right atrial pressure of 3 mm Hg. Pericardium/ Pleura There is no pericardial effusion. There is no pleural effusion. MMode/2D Measurements & Calculations LVIDd: 5.5 cm LVOT diam: 2.3 cm LVIDs: 3.3 cm Ao root diam: 3.7 cm FS: 40.1 % asc Aorta Diam: 3.7 cm EPSS: 0.99 cm IVSd: 0.90 cm LVPWd: 0.88 cm LV teixeira. diameter/BSA (cm/m^2): 2.6 LV sys. diameter/BSA (cm/m^2): 1.6 LA A2 area: 20.5 cm2 RA long axis: 5.6 cm LA A4 area: 16.5 cm2 RA area: 15.5 cm2 LA length (vol): 5.6 cm RA vol: 36.2 ml LA vol: 51.0 ml RA : 17.0 ml/m2 LA vol index: 23.9 ml/m2 IVC diam: 1.2 cm RVD1 (basal): 4.0 cm RVD2 (mid): 3.0 cm TAPSE: 2.3 cm Doppler Measurements & Calculations Ao V2 max: 121.8 cm/sec LVOT Max Roger: 98.8 cm/sec Ao V2 mean: 83.7 cm/sec LV V1 max P.9 mmHg Ao max P.9 mmHg LV V1 VTI: 22.0 cm Ao mean P.1 mmHg COURTNEY(I,D): 4.0 cm2 Ao V2 VTI: 23.3 cm COURTNEY(V,D): 3.5 cm2 sev ratio: 0.95 COURTNEY indexed to BSA (cm^2/m^2): 1.9 MV E max roger: 59.2 cm/sec TR max roger: 227.6 cm/sec MV A max roger: 54.4 cm/sec TR max P.7 mmHg MV E/A: 1.1 PA V2 max: 58.1 cm/sec Med Peak E' Roger: 6.0 cm/sec PA V2 mean: 37.2 cm/sec E/E' med: 9.9 PA mean P.64 mmHg Lat Peak E' Roger: 7.6 cm/sec PA pr(Accel): 36.2 mmHg E/E' lat: 7.8 E/e' average: 8.9 MV dec time: 0.16 sec SV(LVOT): 94.1 ml Reading Physician:11:39 AM
--- NOTE | 2024-05-09 21:26 | DI.NM.S_ITS ---
DATE OF SERVICE: 05/09/2024 EXERCISE TREADMILL STRESS TEST PROCEDURE: Exercise treadmill stress test without imaging. ORDERING PROVIDER: Dr. Van Peterson. INDICATIONS: The patient is a 68-year-old male with exertional dyspnea, tachycardia, and lightheadedness. FINDINGS: 1. The patient was able to exercise for 10 minutes 53 seconds on a standard Rd protocol suggesting excellent exercise capacity with an YING of -40%, achieving 12.8 METS. 2. He had a normal heart rate response to exercise achieving a maximum heart rate of 152 BPM (99% of his predicted maximum). He had a mild hypertensive blood pressure response to exercise with a resting blood pressure of 130/80 increasing to a maximum of 210/80. 3. He had no chest discomfort or other anginal symptoms. 4. His resting ECG shows sinus rhythm with normal ST segments. With exercise, he develops slight upsloping ST depression that resolves within 1 minute of recovery but no concerning ST-segment shifts. He had rare PVCs, rarely in couplets at peak exercise, but no other arrhythmias. IMPRESSION: 1. Normal exercise treadmill stress test for ischemia. 2. Excellent exercise capacity without angina. He had rare PVCs, rarely in couplets, with exercise. 3. He had a mild hypertensive blood pressure response to exercise. Kashif Ryan - MAX/tana/AY doc#: [id number]/job#: [id number] dd: 05/09/2024 17:12:00 dt: 05/09/2024 18:43:00 DICTATING MD/COPIES TO: Enoch Beck MD; Dr. Van Peterson COPIES ANSLEYE: BERNARD; ; Dr. Van Peterson
== END ==
PROVIDERS: PCP Nurse Practitioner Family; Referring Provider Internal Medicine Cardiovascular Disease; Visit Provider Internal Medicine Cardiovascular Disease
DX: I34.0 Nonrheumatic mitral (valve) insufficiency (principal); R06.02 Shortness of breath; R42 Dizziness and giddiness; R00.0 Tachycardia, unspecified
CPT/HCPCS: 93017; 93306

== ENCOUNTER 2025-05-19 08:15 | Outpatient (RCR) | payer MEDICARE, OTHER, SELFPAY ==
[2022-02-06 10:22] VITALS: BMI 26.3
--- NOTE | 2025-04-03 10:16 | PT.OPPOC ---
Physical, Occupational & Speech Therapy At [facility] Current Diagnoses Type 2 diabetes mellitus with diabetic polyneuropathy (04/03/25) Polyneuropathy, unspecified (04/03/25) Radiculopathy, lumbar region (04/03/25) Paresthesia of skin (04/03/25) Visit Care Team Role Provider Type Tiffany Vance DNP, ARNP Primary Care Provider Non-Staff Specialty: Medical Address: [address] [facility], [place], [address] Email: LAYTON Gann Attending Provider Non-Staff Referring Provider Specialty: Neurology Address: [address], [address], [place], [address] Email: Plan Of Care PT OP: Cervical/Upper Extremity Start: 04/03/25 08:34 Freq: Status: Active Protocol: Document 04/03/25 08:34 ZOYA (Rec: 04/03/25 10:15 ZOYA [id number]) Out-Patient Physical Therapy Visit Information Visit Information Visit Type Initial Evaluation Visit Start Time 08:20 Visit Stop Time 09:00 Visit Number 1 Number of TIRE BEADER MAKER Visits 0 Progress Note Due 05/03/25 OP-PT Subjective Patient Comments Patient Comments History of current diagnosis: Patient reports he had had neck pain and radiating symptoms that started in December when stepped onto a boat and hit his head. He reports that he did this a week later and the same. He reports the tingling in his arm started a couple days later. Occupation: Semi-retired. Works two days per week at [employer] Physical activities/ hobbies: Boating, working on boat maintenance Pain location: Anterior L shoulder Pain description: Tingling Pain 0-10/10 (current): 2/10 Pain 0-10/10 (worst): 5/10 Pain 0-10/10 (best): 2/10 Aggravating: Seemingly random - laying down on L side Alleviating: Move neck and arm around Function prior to injury: Independent with all ADLs Function current: Independent with all ADLs - limited with rotating head to L Patient goals: Improve symptoms down arm Cervical Spine Range of Motion Cervical Spine Active Flexion 55 Extension 65 Rotation Left 60 Rotation Right 65 Lateral Flexion Left 43 Lateral Flexion 40 Right Comments Slight symptom reproduction with L rotation Special Tests Cervical Spine Special Tests ULTTA Test Results + on L Foraminal Compression Test Results - B Spurling's Test Test Results - B Physical Therapy Assessment Rehab Potential Rehabilitation Good Potential Evaluation Complexity Number of Personal 0 Factors/ Comorbidities Number of Body 1-2 Systems Impaired Clinical Stable Presentation at Evaluation Impairments Impairments Activity Tolerance,Balance,Coordination,Functional Activities,Functional Mobility,Pain,Posture,ROM,Soft Tissue Mobility,Strength Goals Three Impairment General function Short Term Goal (STG Patient will report a GROC of 20% in order to show an ) increase in self-perceived function. STG Duration 4 weeks Halfway Goal (LTG) Patient will report a GROC of 40% in order to show an increase in self-perceived function. LTG Duration 8 weeks Two Impairment Pain intensity Short Term Goal (STG Patient will report a reduction in pain intensity at ) worst to a 3/10 in order to better sleep through the night. STG Duration 4 weeks Wood Mill Supervisor Goal (LTG) Patient will report a reduction in pain intensity at worst to a 1/10 in order to better sleep through the night. LTG Duration 8 weeks One Impairment Cervical rotation AROM Short Term Goal (STG Patient will demonstrate an increase in bilateral ) cervical rotation AROM to 67 degrees in order to better function with turning his head. STG Duration 4 weeks Halfway Goal (LTG) Patient will demonstrate an increase in bilateral cervical rotation AROM to 74 degrees in order to better function with turning his head. LTG Duration 8 weeks Assessment Summary Assessment Patient presenting to PT with complaints of chronic radiating pain that started in December when he hit his head on a boat. Functional deficits include turning his head to the L. Objective investigation revealed deficits in cervical ROM (See objective measures: B rotation AROM), and symptom reproduction with ULTTA. Presentation is consistent with cervical radiculopathy and patient will benefit from PT to address deficits and return to prior level of function. Physical Therapy Plan Frequency and Duration Frequency of 2x/Week Treatment Duration of 12 treatment (weeks) Plan of Care Start 04/03/25 Date Plan of Care End 07/02/25 Date Therapeutic Interventions Therapeutic Coordination Training,Home Exercise Program,Joint Interventions Mobilizations,Manual Therapy,Neuromuscular Re-education ,Patient/Caregiver Education,Self-Care/Home Management, Soft Tissue Mobilization,Taping,Therapeutic Activities, Therapeutic Exercises Modalities Biofeedback,Cold Pack/Ice Massage,Electric Stimulation, Hot Packs,Infrared Therapy,Iontophoresis,Traction- Mechanical,Ultrasound,Vasopneumatic Devices Next Visit Focus/Plan Next Note Type Treatment Note Next Visit Plan Initiate plan of care with focus on cervical mobility and neurodynamics. Plan of Care Dates Plan of Care Start Date 04/03/25 Plan of Care End Date 07/02/25 Electronically Signed by: Lucy Zhu, PT 04/03/25 1016 If you are in agreement with this Plan of Care, please return a signed and dated copy. I have reviewed this Plan of Care and certify that the skilled therapy services above are required to meet the patient?s needs. Physician Signature Date Printed Name and Credentials Clinical Instructor Signature Printed Name and Credentials
--- NOTE | 2025-04-07 10:47 | PT.OTN ---
Current Diagnoses Type 2 diabetes mellitus with diabetic polyneuropathy (04/07/25) Polyneuropathy, unspecified (04/07/25) Radiculopathy, lumbar region (04/07/25) Paresthesia of skin (04/07/25) Physical Therapy Treatment Note PT OP: Cervical/Upper Extremity Start: 04/03/25 08:34 Freq: Status: Active Protocol: Document 04/03/25 08:34 ZOYA (Rec: 04/03/25 10:15 ZOYA [id number]) Out-Patient Physical Therapy Visit Information Visit Information Visit Type Initial Evaluation Visit Start Time 08:20 Visit Stop Time 09:00 Visit Number 1 Number of MILL LABORER Visits 0 Progress Note Due 05/03/25 OP-PT Subjective Patient Comments Patient Comments History of current diagnosis: Patient reports he had had neck pain and radiating symptoms that started in December when stepped onto a boat and hit his head. He reports that he did this a week later and the same. He reports the tingling in his arm started a couple days later. Occupation: Semi-retired. Works two days per week at [employer] Physical activities/ hobbies: Boating, working on boat maintenance Pain location: Anterior L shoulder Pain description: Tingling Pain 0-10/10 (current): 2/10 Pain 0-10/10 (worst): 5/10 Pain 0-10/10 (best): 2/10 Aggravating: Seemingly random - laying down on L side Alleviating: Move neck and arm around Function prior to injury: Independent with all ADLs Function current: Independent with all ADLs - limited with rotating head to L Patient goals: Improve symptoms down arm Cervical Spine Range of Motion Cervical Spine Active Flexion 55 Extension 65 Rotation Left 60 Rotation Right 65 Lateral Flexion Left 43 Lateral Flexion 40 Right Comments Slight symptom reproduction with L rotation Special Tests Cervical Spine Special Tests ULTTA Test Results + on L Foraminal Compression Test Results - B Spurling's Test Test Results - B Physical Therapy Assessment Rehab Potential Rehabilitation Good Potential Evaluation Complexity Number of Personal 0 Factors/ Comorbidities Number of Body 1-2 Systems Impaired Clinical Stable Presentation at Evaluation Impairments Impairments Activity Tolerance,Balance,Coordination,Functional Activities,Functional Mobility,Pain,Posture,ROM,Soft Tissue Mobility,Strength Goals Three Impairment General function Short Term Goal (STG Patient will report a GROC of 20% in order to show an ) increase in self-perceived function. STG Duration 4 weeks Tool Room Attendant Goal (LTG) Patient will report a GROC of 40% in order to show an increase in self-perceived function. LTG Duration 8 weeks Two Impairment Pain intensity Short Term Goal (STG Patient will report a reduction in pain intensity at ) worst to a 3/10 in order to better sleep through the night. STG Duration 4 weeks Tool Room Attendant Goal (LTG) Patient will report a reduction in pain intensity at worst to a 1/10 in order to better sleep through the night. LTG Duration 8 weeks One Impairment Cervical rotation AROM Short Term Goal (STG Patient will demonstrate an increase in bilateral ) cervical rotation AROM to 67 degrees in order to better function with turning his head. STG Duration 4 weeks Care Home Goal (LTG) Patient will demonstrate an increase in bilateral cervical rotation AROM to 74 degrees in order to better function with turning his head. LTG Duration 8 weeks Assessment Summary Assessment Patient presenting to PT with complaints of chronic radiating pain that started in December when he hit his head on a boat. Functional deficits include turning his head to the L. Objective investigation revealed deficits in cervical ROM (See objective measures: B rotation AROM), and symptom reproduction with ULTTA. Presentation is consistent with cervical radiculopathy and patient will benefit from PT to address deficits and return to prior level of function. Physical Therapy Plan Frequency and Duration Frequency of 2x/Week Treatment Duration of 12 treatment (weeks) Plan of Care Start 04/03/25 Date Plan of Care End 07/02/25 Date Therapeutic Interventions Therapeutic Coordination Training,Home Exercise Program,Joint Interventions Mobilizations,Manual Therapy,Neuromuscular Re-education ,Patient/Caregiver Education,Self-Care/Home Management, Soft Tissue Mobilization,Taping,Therapeutic Activities, Therapeutic Exercises Modalities Biofeedback,Cold Pack/Ice Massage,Electric Stimulation, Hot Packs,Infrared Therapy,Iontophoresis,Traction- Mechanical,Ultrasound,Vasopneumatic Devices Next Visit Focus/Plan Next Note Type Treatment Note Next Visit Plan Initiate plan of care with focus on cervical mobility and neurodynamics. PT OP: Lower Back/Lower Extremity Start: 04/03/25 07:31 Freq: Status: Active Protocol: Document 04/07/25 09:59 ZOYA (Rec: 04/07/25 10:42 ZOYA [id number]) Out-Patient Physical Therapy Visit Information Visit Information Visit Type Treatment Note Visit Start Time 09:55 Visit Stop Time 10:30 Visit Number 2 Number of MILL LABORER Visits 0 Progress Note Due 05/03/25 OP-PT Subjective Patient Comments Patient Comments Patient reports no large changes in presentation. He has been doing his home exercises. Therapeutic Exercises Sitting Exercises Seated cervical side bending Reps/Minutes 2x10 Ball on wall cervical strengthening Sitting Exercise Flexion with chin tuck and rotation with chin tuck Name Reps/Minutes 3x10 each direction Cervical extension AROM Reps/Minutes 3x10 Comments x10 with towel SNAG, 2x10 AROM Cervical flexion AROM Reps/Minutes 2x10 Median nerve glides Reps/Minutes 2x10 Ulnar nerve glides Reps/Minutes x20 Chin tuck with rotation Reps/Minutes x20 to L Chin tucks Reps/Minutes x20 Physical Therapy Assessment Goals Three Impairment General function Short Term Goal (STG Patient will report a GROC of 20% in order to show an ) increase in self-perceived function. STG Duration 4 weeks Tool Room Attendant Goal (LTG) Patient will report a GROC of 40% in order to show an increase in self-perceived function. LTG Duration 8 weeks Two Impairment Pain intensity Short Term Goal (STG Patient will report a reduction in pain intensity at ) worst to a 3/10 in order to better sleep through the night. STG Duration 4 weeks Tool Room Attendant Goal (LTG) Patient will report a reduction in pain intensity at worst to a 1/10 in order to better sleep through the night. LTG Duration 8 weeks One Impairment Cervical rotation AROM Short Term Goal (STG Patient will demonstrate an increase in bilateral ) cervical rotation AROM to 67 degrees in order to better function with turning his head. STG Duration 4 weeks Tool Room Attendant Goal (LTG) Patient will demonstrate an increase in bilateral cervical rotation AROM to 74 degrees in order to better function with turning his head. LTG Duration 8 weeks Assessment Summary Assessment Treatment focused on cervical mobility and neurodynamics. Patient tolerated treatment well with no lasting increases in symptoms. Plan next session to follow up on home exercises and continue with plan of care. Physical Therapy Plan Frequency and Duration Frequency of 2x/Week Treatment Duration of 12 treatment (weeks) Plan of Care Start 04/03/25 Date Plan of Care End 07/02/25 Date Next Visit Focus/Plan Next Note Type Treatment Note Next Visit Plan Continue with plan of care with focus on cervical mobility and neurodynamics. Current HEP: Chin tucks Chin tuck with rotation AROM Median nerve glide Ulnar nerve glide
--- NOTE | 2025-04-14 09:12 | PT.OTN ---
Current Diagnoses Type 2 diabetes mellitus with diabetic polyneuropathy (04/14/25) Polyneuropathy, unspecified (04/14/25) Radiculopathy, lumbar region (04/14/25) Paresthesia of skin (04/14/25) Physical Therapy Treatment Note PT OP: Cervical/Upper Extremity Start: 04/03/25 08:34 Freq: Status: Active Protocol: Document 04/14/25 09:10 ZOYA (Rec: 04/14/25 09:12 ZOYA [id number]) Out-Patient Physical Therapy Visit Information Visit Information Visit Type Treatment Note Visit Start Time 08:18 Visit Stop Time 08:58 Visit Number 3 Number of TITLE AGENT Visits 0 Progress Note Due 05/03/25 OP-PT Subjective Patient Comments Patient Comments Patient reports his symptoms have been a little improved. Therapeutic Exercises Sitting Exercises Seated cervical side bending Reps/Minutes 2x10 Ball on wall cervical strengthening Sitting Exercise Flexion with chin tuck and rotation with chin tuck Name Reps/Minutes 3x10 each direction Cervical extension AROM Reps/Minutes 3x10 Comments 2x10 AROM Cervical flexion AROM Reps/Minutes 2x10 Median nerve glides Reps/Minutes 3x10 Ulnar nerve glides Reps/Minutes x20 Chin tuck with rotation Reps/Minutes x20 to L Chin tucks Reps/Minutes x20 Standing Exercises Plank position cervical extension Standing Exercise elevated table Name Reps/Minutes x10 Plank position pushup plus Standing Exercise on elevated table Name Reps/Minutes x10 Dumbell abduction Resistance 4# Reps/Minutes 3x10 Band pull apart Resistance green band Reps/Minutes 3x10 Physical Therapy Assessment Goals Three Impairment General function Short Term Goal (STG Patient will report a GROC of 20% in order to show an ) increase in self-perceived function. STG Duration 4 weeks Traffic Survey Technician Goal (LTG) Patient will report a GROC of 40% in order to show an increase in self-perceived function. LTG Duration 8 weeks Two Impairment Pain intensity Short Term Goal (STG Patient will report a reduction in pain intensity at ) worst to a 3/10 in order to better sleep through the night. STG Duration 4 weeks Traffic Survey Technician Goal (LTG) Patient will report a reduction in pain intensity at worst to a 1/10 in order to better sleep through the night. LTG Duration 8 weeks One Impairment Cervical rotation AROM Short Term Goal (STG Patient will demonstrate an increase in bilateral ) cervical rotation AROM to 67 degrees in order to better function with turning his head. STG Duration 4 weeks Traffic Survey Technician Goal (LTG) Patient will demonstrate an increase in bilateral cervical rotation AROM to 74 degrees in order to better function with turning his head. LTG Duration 8 weeks Assessment Summary Assessment Treatment focused on progressing cervical ROM and strengthening along with continued nerve glides. Patient tolerated treatment well with no increases in pain levels or lasting increases in radicular symptoms. Plan next session to follow up on home exercises and continued plan of care. Physical Therapy Plan Frequency and Duration Frequency of 2x/Week Treatment Duration of 12 treatment (weeks) Plan of Care Start 04/03/25 Date Plan of Care End 07/02/25 Date Next Visit Focus/Plan Next Note Type Treatment Note Next Visit Plan Continue with plan of care with focus on cervical mobility and neurodynamics. Current HEP: Chin tucks Chin tuck with rotation AROM Median nerve glide Ulnar nerve glide PT OP: Lower Back/Lower Extremity Start: 04/03/25 07:31 Freq: Status: Active Protocol: Document 04/14/25 07:28 ZOYA (Rec: 04/14/25 09:08 ZOYA [id number]) Out-Patient Physical Therapy Visit Information Visit Information Visit Type Treatment Note Visit Start Time 08:18 Visit Stop Time 08:58 Visit Number 3 Number of TITLE AGENT Visits 0 Progress Note Due 05/03/25 OP-PT Subjective Patient Comments Patient Comments Patient reports his symptoms have been a little improved. Therapeutic Exercises Sitting Exercises Seated cervical side bending Reps/Minutes 2x10 Ball on wall cervical strengthening Sitting Exercise Flexion with chin tuck and rotation with chin tuck Name Reps/Minutes 3x10 each direction Cervical extension AROM Reps/Minutes 3x10 Comments 2x10 AROM Cervical flexion AROM Reps/Minutes 2x10 Median nerve glides Reps/Minutes 3x10 Ulnar nerve glides Reps/Minutes x20 Chin tuck with rotation Reps/Minutes x20 to L Chin tucks Reps/Minutes x20 Standing Exercises Plank position cervical extension Standing Exercise elevated table Name Reps/Minutes x10 Plank position pushup plus Standing Exercise on elevated table Name Reps/Minutes x10 Dumbell abduction Resistance 4# Reps/Minutes 3x10 Band pull apart Resistance green band Reps/Minutes 3x10 Physical Therapy Assessment Goals Three Impairment General function Short Term Goal (STG Patient will report a GROC of 20% in order to show an ) increase in self-perceived function. STG Duration 4 weeks Mcfp Goal (LTG) Patient will report a GROC of 40% in order to show an increase in self-perceived function. LTG Duration 8 weeks Two Impairment Pain intensity Short Term Goal (STG Patient will report a reduction in pain intensity at ) worst to a 3/10 in order to better sleep through the night. STG Duration 4 weeks Traffic Survey Technician Goal (LTG) Patient will report a reduction in pain intensity at worst to a 1/10 in order to better sleep through the night. LTG Duration 8 weeks One Impairment Cervical rotation AROM Short Term Goal (STG Patient will demonstrate an increase in bilateral ) cervical rotation AROM to 67 degrees in order to better function with turning his head. STG Duration 4 weeks Mcfp Goal (LTG) Patient will demonstrate an increase in bilateral cervical rotation AROM to 74 degrees in order to better function with turning his head. LTG Duration 8 weeks Assessment Summary Assessment Treatment focused on progressing cervical ROM and strengthening along with continued nerve glides. Patient tolerated treatment well with no increases in pain levels or lasting increases in radicular symptoms. Plan next session to follow up on home exercises and continued plan of care. Physical Therapy Plan Frequency and Duration Frequency of 2x/Week Treatment Duration of 12 treatment (weeks) Plan of Care Start 04/03/25 Date Plan of Care End 07/02/25 Date Next Visit Focus/Plan Next Note Type Treatment Note Next Visit Plan Continue with plan of care with focus on cervical mobility and neurodynamics. Current HEP: Chin tucks Chin tuck with rotation AROM Median nerve glide Ulnar nerve glide
--- NOTE | 2025-04-28 10:46 | PT.OTN ---
Current Diagnoses Type 2 diabetes mellitus with diabetic polyneuropathy (04/28/25) Polyneuropathy, unspecified (04/28/25) Radiculopathy, lumbar region (04/28/25) Paresthesia of skin (04/28/25) Physical Therapy Treatment Note PT OP: Cervical/Upper Extremity Start: 04/03/25 08:34 Freq: Status: Active Protocol: Document 04/14/25 09:10 ZOYA (Rec: 04/14/25 09:12 ZOYA [id number]) Out-Patient Physical Therapy Visit Information Visit Information Visit Type Treatment Note Visit Start Time 08:18 Visit Stop Time 08:58 Visit Number 3 Number of MECHANICAL ENGINEERING OFFICER Visits 0 Progress Note Due 05/03/25 OP-PT Subjective Patient Comments Patient Comments Patient reports his symptoms have been a little improved. Therapeutic Exercises Sitting Exercises Seated cervical side bending Reps/Minutes 2x10 Ball on wall cervical strengthening Sitting Exercise Flexion with chin tuck and rotation with chin tuck Name Reps/Minutes 3x10 each direction Cervical extension AROM Reps/Minutes 3x10 Comments 2x10 AROM Cervical flexion AROM Reps/Minutes 2x10 Median nerve glides Reps/Minutes 3x10 Ulnar nerve glides Reps/Minutes x20 Chin tuck with rotation Reps/Minutes x20 to L Chin tucks Reps/Minutes x20 Standing Exercises Plank position cervical extension Standing Exercise elevated table Name Reps/Minutes x10 Plank position pushup plus Standing Exercise on elevated table Name Reps/Minutes x10 Dumbell abduction Resistance 4# Reps/Minutes 3x10 Band pull apart Resistance green band Reps/Minutes 3x10 Physical Therapy Assessment Goals Three Impairment General function Short Term Goal (STG Patient will report a GROC of 20% in order to show an ) increase in self-perceived function. STG Duration 4 weeks Music Education Director Goal (LTG) Patient will report a GROC of 40% in order to show an increase in self-perceived function. LTG Duration 8 weeks Two Impairment Pain intensity Short Term Goal (STG Patient will report a reduction in pain intensity at ) worst to a 3/10 in order to better sleep through the night. STG Duration 4 weeks Music Education Director Goal (LTG) Patient will report a reduction in pain intensity at worst to a 1/10 in order to better sleep through the night. LTG Duration 8 weeks One Impairment Cervical rotation AROM Short Term Goal (STG Patient will demonstrate an increase in bilateral ) cervical rotation AROM to 67 degrees in order to better function with turning his head. STG Duration 4 weeks Music Education Director Goal (LTG) Patient will demonstrate an increase in bilateral cervical rotation AROM to 74 degrees in order to better function with turning his head. LTG Duration 8 weeks Assessment Summary Assessment Treatment focused on progressing cervical ROM and strengthening along with continued nerve glides. Patient tolerated treatment well with no increases in pain levels or lasting increases in radicular symptoms. Plan next session to follow up on home exercises and continued plan of care. Physical Therapy Plan Frequency and Duration Frequency of 2x/Week Treatment Duration of 12 treatment (weeks) Plan of Care Start 04/03/25 Date Plan of Care End 07/02/25 Date Next Visit Focus/Plan Next Note Type Treatment Note Next Visit Plan Continue with plan of care with focus on cervical mobility and neurodynamics. Current HEP: Chin tucks Chin tuck with rotation AROM Median nerve glide Ulnar nerve glide PT OP: Lower Back/Lower Extremity Start: 04/03/25 07:31 Freq: Status: Active Protocol: Document 04/28/25 08:01 ZOYA (Rec: 04/28/25 10:46 ZOYA [id number]) Out-Patient Physical Therapy Visit Information Visit Information Visit Type Treatment Note Visit Start Time 08:15 Visit Stop Time 09:00 Visit Number 4 Number of MECHANICAL ENGINEERING OFFICER Visits 0 Progress Note Due 05/03/25 OP-PT Subjective Patient Comments Patient Comments Patient reports he has been dealing with a good deal of spinning and dizziness since the weekend. He reports the symptoms are infrequent but he gets them when he changes position and when he looks to his L sometimes. Canalithic Repositioning BPPV Treatment Charan Affected Canal(s) L Comments x4 trials, symptom improvement after each one Physical Therapy Assessment Goals Three Impairment General function Short Term Goal (STG Patient will report a GROC of 20% in order to show an ) increase in self-perceived function. STG Duration 4 weeks Half-Way Goal (LTG) Patient will report a GROC of 40% in order to show an increase in self-perceived function. LTG Duration 8 weeks Two Impairment Pain intensity Short Term Goal (STG Patient will report a reduction in pain intensity at ) worst to a 3/10 in order to better sleep through the night. STG Duration 4 weeks Half-Way Goal (LTG) Patient will report a reduction in pain intensity at worst to a 1/10 in order to better sleep through the night. LTG Duration 8 weeks One Impairment Cervical rotation AROM Short Term Goal (STG Patient will demonstrate an increase in bilateral ) cervical rotation AROM to 67 degrees in order to better function with turning his head. STG Duration 4 weeks Half-Way Goal (LTG) Patient will demonstrate an increase in bilateral cervical rotation AROM to 74 degrees in order to better function with turning his head. LTG Duration 8 weeks Assessment Summary Assessment Patient presenting to PT with reports of high levels of dizziness describes as a spinning sensation. Because of this, patient was evaluated briefly for BBPV with aquilino-hallpike which revealed increased symptoms on L side but no nystagmus. Because of increased symptoms, the charan maneuver was completed four times and patient reported improvement but not resolution in symptoms after each trial. Plan next session to follow up on these symptoms and resume focus on cervical mobility and neurodynamics pending improvement. Patient was advised to report to the ED if his dizziness symptoms get worse. Physical Therapy Plan Frequency and Duration Frequency of 2x/Week Treatment Duration of 12 treatment (weeks) Plan of Care Start 04/03/25 Date Plan of Care End 07/02/25 Date Next Visit Focus/Plan Next Note Type Treatment Note Next Visit Plan Continue with plan of care with focus on cervical mobility and neurodynamics. Current HEP: Chin tucks Chin tuck with rotation AROM Median nerve glide Ulnar nerve glide
--- NOTE | 2025-05-08 09:09 | PT.OPPN ---
Current Diagnoses Type 2 diabetes mellitus with diabetic polyneuropathy (05/08/25) Polyneuropathy, unspecified (05/08/25) Radiculopathy, lumbar region (05/08/25) Paresthesia of skin (05/08/25) Physical Therapy Progress Note PT OP: Cervical/Upper Extremity Start: 04/03/25 08:34 Freq: Status: Active Protocol: Document 05/08/25 07:26 ZOYA (Rec: 05/08/25 09:07 ZOYA [id number]) Out-Patient Physical Therapy Visit Information Visit Information Visit Type Progress Note Visit Start Time 08:20 Visit Stop Time 09:00 Visit Number 5 Number of TARIFF PUBLISHING AGENT Visits 0 Progress Note Due 06/07/25 OP-PT Subjective Patient Comments Patient Comments Patient reports his symptoms have improved a lot since last session in terms of the spinning. He reports his neck has been feeling good and he is getting less symptoms down his arm as well. Overall his GROC is about 60%. He notes improvement with tingling symptoms in his arm but he still gets some symptoms occasionally . Therapeutic Exercises Sitting Exercises Cervical extension AROM Reps/Minutes 2x10 Cervical flexion AROM Reps/Minutes x20 Median nerve glides Reps/Minutes 3x10 Chin tuck with rotation Reps/Minutes x20 B Comments With overpressure at end range Standing Exercises Plank position cervical extension Standing Exercise elevated table Name Reps/Minutes 2x10 Plank position pushup plus Standing Exercise on elevated table Name Reps/Minutes 2x10 Dumbell abduction Resistance 5# Reps/Minutes 3x10 Band pull apart Resistance green band Reps/Minutes 3x10 Physical Therapy Assessment Goals Three Impairment General function Short Term Goal (STG Patient will report a GROC of 20% in order to show an ) increase in self-perceived function. STG Duration 4 weeks Production Editor Goal (LTG) Patient will report a GROC of 40% in order to show an increase in self-perceived function. LTG Duration 8 weeks Two Impairment Pain intensity Short Term Goal (STG Patient will report a reduction in pain intensity at ) worst to a 3/10 in order to better sleep through the night. Met - 05/08/2025 (3/10 at worst) STG Duration 4 weeks Production Editor Goal (LTG) Patient will report a reduction in pain intensity at worst to a 1/10 in order to better sleep through the night. Met - 05/08/2025 (3/10 at worst) LTG Duration 8 weeks One Impairment Cervical rotation AROM Short Term Goal (STG Patient will demonstrate an increase in bilateral ) cervical rotation AROM to 67 degrees in order to better function with turning his head. Met L (74), Met R (70) (05/08/2025) STG Duration 4 weeks Production Editor Goal (LTG) Patient will demonstrate an increase in bilateral cervical rotation AROM to 74 degrees in order to better function with turning his head. Met L (74), In progress R (70) (05/08/2025) LTG Duration 8 weeks Assessment Summary Assessment Patient presenting to PT after 4 visits for cervical radiculopathy. Patient has made improvement with symptoms frequency and intensity. Objective investigation revealed improvement in ROM (see goal section: rotation), and function (see subjective: GROC) . Patient will continue to benefit from PT to address remaining deficits and return to full prior level of function. Physical Therapy Plan Frequency and Duration Frequency of 2x/Week Treatment Duration of 12 treatment (weeks) Plan of Care Start 04/03/25 Date Plan of Care End 07/02/25 Date Next Visit Focus/Plan Next Note Type Treatment Note Next Visit Plan Continue with plan of care with focus on cervical mobility and neurodynamics. Current HEP: Chin tucks Chin tuck with rotation AROM Median nerve glide Ulnar nerve glide
--- NOTE | 2025-05-12 08:49 | PT.OTN ---
Current Diagnoses Type 2 diabetes mellitus with diabetic polyneuropathy (05/12/25) Polyneuropathy, unspecified (05/12/25) Radiculopathy, lumbar region (05/12/25) Paresthesia of skin (05/12/25) Physical Therapy Treatment Note PT OP: Cervical/Upper Extremity Start: 04/03/25 08:34 Freq: Status: Active Protocol: Document 05/12/25 07:28 ZOYA (Rec: 05/12/25 08:49 ZOYA [id number]) Out-Patient Physical Therapy Visit Information Visit Information Visit Type Treatment Note Visit Start Time 08:15 Visit Stop Time 08:50 Visit Number 6 Number of MACHINE SORTER Visits 0 Progress Note Due 06/07/25 OP-PT Subjective Patient Comments Patient Comments Patient reports his neck has been feeling good. Still getting some tingling but overall better. Patient needs to leave at 10 minutes to 9:00 in order to make a meeting on time. Therapeutic Exercises Sitting Exercises Ball on wall cervical strengthening Sitting Exercise Flexion with chin tuck and rotation with chin tuck Name Reps/Minutes 3x10 each direction Cervical extension AROM Reps/Minutes x20 Cervical flexion AROM Reps/Minutes x20 Median nerve glides Reps/Minutes 3x10 Comments With cervical lateral flexion to contralateral side Chin tuck with rotation Reps/Minutes x20 B Comments With overpressure at end range Chin tucks Reps/Minutes x20 Standing Exercises Plank position cervical extension Standing Exercise elevated table Name Reps/Minutes 2x10 Plank position pushup plus Standing Exercise on elevated table Name Reps/Minutes 2x10 Dumbell abduction Resistance 5# Reps/Minutes 3x10 Band pull apart Resistance blue level 4 band Reps/Minutes 3x10 Physical Therapy Assessment Goals Three Impairment General function Short Term Goal (STG Patient will report a GROC of 20% in order to show an ) increase in self-perceived function. STG Duration 4 weeks Half-Way Goal (LTG) Patient will report a GROC of 40% in order to show an increase in self-perceived function. LTG Duration 8 weeks Two Impairment Pain intensity Short Term Goal (STG Patient will report a reduction in pain intensity at ) worst to a 3/10 in order to better sleep through the night. Met - 05/08/2025 (3/10 at worst) STG Duration 4 weeks Half-Way Goal (LTG) Patient will report a reduction in pain intensity at worst to a 1/10 in order to better sleep through the night. Met - 05/08/2025 (3/10 at worst) LTG Duration 8 weeks One Impairment Cervical rotation AROM Short Term Goal (STG Patient will demonstrate an increase in bilateral ) cervical rotation AROM to 67 degrees in order to better function with turning his head. Met L (74), Met R (70) (05/08/2025) STG Duration 4 weeks Wireless Engineer Goal (LTG) Patient will demonstrate an increase in bilateral cervical rotation AROM to 74 degrees in order to better function with turning his head. Met L (74), In progress R (70) (05/08/2025) LTG Duration 8 weeks Assessment Summary Assessment Treatment focused on continued cervical ROM, strengthening, and neurodynamics. Patient tolerated treatment well with no increases in symptoms. Plan next session to follow up on response to today's session and continue with plan of care. Physical Therapy Plan Frequency and Duration Frequency of 2x/Week Treatment Duration of 12 treatment (weeks) Plan of Care Start 04/03/25 Date Plan of Care End 07/02/25 Date Next Visit Focus/Plan Next Note Type Treatment Note Next Visit Plan Continue with plan of care with focus on cervical mobility and neurodynamics. Current HEP: Chin tucks Chin tuck with rotation AROM Median nerve glide Ulnar nerve glide
--- NOTE | 2025-05-19 09:03 | PT.OPDS ---
Current Diagnoses Type 2 diabetes mellitus with diabetic polyneuropathy (05/19/25) Polyneuropathy, unspecified (05/19/25) Radiculopathy, lumbar region (05/19/25) Paresthesia of skin (05/19/25) Visit Care Team Role Provider Type Tiffany Vance DNP, ARNP Primary Care Provider Non-Staff Specialty: Medical Address: [facility] Deanna Gomez [facility], [place], [address] Email: LAYTON Gann Attending Provider Non-Staff Referring Provider Specialty: Neurology Address: [facility] [address], [address], [place], [address] Email: Visit Number Visit Number 7 Discharge Summary PT OP: Cervical/Upper Extremity Start: 04/03/25 08:34 Freq: Status: Active Protocol: Document 05/19/25 08:02 ZOYA (Rec: 05/19/25 09:03 ZOYA [id number]) Out-Patient Physical Therapy Visit Information Visit Information Visit Type Discharge Summary Visit Start Time 08:17 Visit Stop Time 08:57 Visit Number 7 Number of HOISTING ENGINEER PILE DRIVING Visits 0 Progress Note Due 06/07/25 OP-PT Subjective Patient Comments Patient Comments Patient reports he is feeling good about today being his last session. His symptoms have continued to improve. Therapeutic Exercises Sitting Exercises Ball on wall cervical strengthening Sitting Exercise Flexion with chin tuck and rotation with chin tuck Name Reps/Minutes 2x15 flexion, 2x10 rotations Cervical extension AROM Reps/Minutes x20 Median nerve glides Reps/Minutes 3x10 Comments With cervical lateral flexion to contralateral side Chin tuck with rotation Reps/Minutes x20 B Comments With overpressure at end range Chin tucks Reps/Minutes x20 Standing Exercises Plank position pushup plus Standing Exercise on elevated table Name Reps/Minutes 2x10 Band pull apart Resistance blue level 4 band Reps/Minutes 3x10 Physical Therapy Assessment Goals Three Impairment General function Short Term Goal (STG Patient will report a GROC of 20% in order to show an ) increase in self-perceived function. Met - 05/08/2025 STG Duration 4 weeks Supervisor Tumblers Goal (LTG) Patient will report a GROC of 40% in order to show an increase in self-perceived function. Met - 05/08/2025 LTG Duration 8 weeks Two Impairment Pain intensity Short Term Goal (STG Patient will report a reduction in pain intensity at ) worst to a 3/10 in order to better sleep through the night. Met - 05/08/2025 (3/10 at worst) STG Duration 4 weeks Longterm Goal (LTG) Patient will report a reduction in pain intensity at worst to a 1/10 in order to better sleep through the night. In progress - 05/08/2025 (3/10 at worst) LTG Duration 8 weeks One Impairment Cervical rotation AROM Short Term Goal (STG Patient will demonstrate an increase in bilateral ) cervical rotation AROM to 67 degrees in order to better function with turning his head. Met L (74), Met R (70) (05/08/2025) STG Duration 4 weeks Supervisor Tumblers Goal (LTG) Patient will demonstrate an increase in bilateral cervical rotation AROM to 74 degrees in order to better function with turning his head. Met L (74), In progress R (70) (05/08/2025) LTG Duration 8 weeks Assessment Summary Assessment Treatment focused on reviewing exercises to continue with after discharge. Because of improvements demonstrated in previous sessions, and patient comfort with continuing HEP independently, today will be his last formal PT session. Physical Therapy Plan Frequency and Duration Frequency of 2x/Week Treatment Duration of 12 treatment (weeks) Plan of Care Start 04/03/25 Date Plan of Care End 07/02/25 Date Next Visit Focus/Plan Next Note Type Treatment Note Next Visit Plan Continue with plan of care with focus on cervical mobility and neurodynamics. Current HEP: Chin tucks Chin tuck with rotation AROM Median nerve glide Ulnar nerve glide
== END 2025-05-23 09:55 | disposition home or self-care (01) ==
LOC: PHYS 08:15
PROVIDERS: PCP Nurse Practitioner Family; Referring Provider Registered Nurse; Visit Provider Registered Nurse
DX: R20.2 Paresthesia of skin (principal); G62.9 Polyneuropathy, unspecified; M54.16 Radiculopathy, lumbar region; E11.42 Type 2 diabetes mellitus with diabetic polyneuropathy
CPT/HCPCS: 95992; 97110; 97161